=== PATIENT | female | born 1990 | race Caucasian/White ===

== ENCOUNTER → 2021-07-26 13:46 | Outpatient (CLI) | payer OTHER, SELFPAY | PROVIDERS: Visit Provider Nurse Practitioner | DX: U07.1 COVID-19 (principal) | CPT/HCPCS: C9803; U0003; U0005 ==

== ENCOUNTER 2024-05-10 08:02 | Outpatient (CLI) | payer BC, SELFPAY ==
[2024-05-10 08:18] LABS: Basophils # 0.1 K/mm3 (0-0.2); Basophils % 1.2 % (0.1-2.0); Eosinophils # 0.1 K/mm3 (0.0-0.4); Eosinophils % 2.4 % (0.1-12.0); Hematocrit 34.3 % (37.0-47.0); Hemoglobin 10.9 g/dL (12.2-16.2); Lymphocytes # 1.7 K/mm3 (0.7-4.5); Mean Corpuscular HGB Conc 31.7 g/dL (31.8-35.4); Mean Corpuscular Hemoglobin 22.6 pg (27.0-31.2); Mean Corpuscular Volume 71.2 fl (81-99); Mean Platelet Volume 8.5 fl (7.4-10.4); Monocytes # 0.3 K/mm3 (0.1-1.0); Monocytes % 6.2 % (1.7-9.3); Neutrophils % 57.2 % (37.0-80.0); Platelet Count 272 K/mm3 (142-424); Red Blood Count 4.82 M/mm3 (4.20-5.40); Red Cell Distribution Width 16.4 % (11.5-17.5); White Blood Count 5.2 K/mm3 (4.8-10.8)
[2024-05-10 08:39] LABS: Albumin Level 4.2 g/dl (3.5-5.0); Chloride 108 mmol/L (98-107); Potassium 4.1 mmoL/L (3.5-5.1); Sodium 138 mmol/L (136-145)
[2024-05-10 08:41] LABS: Blood Urea Nitrogen 10 mg/dl (7-17); Estimated Glomerular Filt Rate 114 ml/min (>60); GFR (African American) 138 ML/MIN (>60)
[2024-05-10 08:42] LABS: Alanine Aminotransferase 33 U/L (12-78); Albumin/Globulin Ratio 1.9 (1.1-1.8); Alkaline Phosphatase 71 U/L (38-126); Aspartate Amino Transferase 31 U/L (14-36); Bilirubin,Total 0.5 mg/dl (0.2-1.3); Calcium 8.8 mg/dl (8.4-10.2); Chol/HDL Ratio 3.1 (1-3.5); Cholesterol 156 mg/dl (140-200); Globulin 2.2 g/dL (1.3-3.2); Glucose 114 mg/dl (74-100); HDL Cholesterol 51 mg/dl (40-60); Total Protein,Serum 6.4 g/dl (6.3-8.2); Triglycerides 89 mg/dl (30-150); VLDL Cholesterol 18 mg/dL (0-40)
[2024-05-10 08:47] LABS: Anion Gap 8.1 mEq/L (5-15); Carbon Dioxide 26 mmol/L (22.0-30.0)
[2024-05-10 08:53] LABS: Direct LDL Cholesterol 85.95 mg/dL (100-129)
[2024-05-10 09:13] LABS: Thyroid Stimulating Hormone 1.05 uIU/mL (0.465-4.68)
[2024-05-11 08:22] LABS: FSH 7.2 mIU/mL (.); LH 11.7 mIU/mL (.)
== END 2024-05-10 23:59 | disposition home or self-care (01) ==
PROVIDERS: PCP Nurse Practitioner Family; Visit Provider Nurse Practitioner Family
DX: R23.2 Flushing (principal); R53.83 Other fatigue; Z00.00 Encounter for general adult medical examination without abnormal findings
CPT/HCPCS: 36415; 80050; 80053; 80061; 82670; 83001; 83002; 84443; 85025

== ENCOUNTER 2024-05-19 15:15 | Outpatient (CLI) | payer BC, SELFPAY ==
--- NOTE | 2024-05-19 15:19 | US_ITS ---
FINAL REPORT CLINICAL HISTORY: ENLARGED THYROID COMPARISON: None FINDINGS: Sonographic images of the thyroid gland were obtained. The right thyroid lobe measures 49 mm. in length. The left thyroid lobe measures 55 mm. in length. The thyroid isthmus measures 3 mm. The echogenicity is normal. Right 17 x 12 x 11 mm solid isoechoic TR 3 nodule. Left solid hypoechoic 11 x 9 x 8 mm TR 4 nodule IMPRESSION: Thyroid nodules as above. Recommend follow-up ultrasound in 6 to 12 months per TI-RADS criteria. Reviewed, Interpreted and Dictated by Kris Peralta III, MD Transcribed by Tanja Zamora Authenticated and [facility]
== END 2024-05-19 23:59 | disposition home or self-care (01) ==
LOC: RAD 15:16
PROVIDERS: PCP Nurse Practitioner Family; Visit Provider Nurse Practitioner Family
DX: E04.9 Nontoxic goiter, unspecified (principal)
CPT/HCPCS: 76536

== ENCOUNTER 2024-06-27 08:21 | Emergency (ER) | payer BC, SELFPAY ==
[2024-06-27 09:16] VITALS: BP 132/85; PULSE 96; RESP 20; TEMP 36.6; O2SAT 97; BMI 52.4
[2024-06-27 09:19] VITALS: BP 107/57; PULSE 82; RESP 20; TEMP 36.8; O2SAT 98; BMI 31.6
--- NOTE | 2024-06-27 09:22 | EXP.UTC ---
Discharge Plan Disposition Patient Disposition: Home, Self-Care Condition: Good Prescriptions Prescriptions: New amoxicillin 875 mg tablet 875 mg PO Q12H Qty: 20 0RF luwuljkmrvzmeep-cmtuufdrz-CM [Bromfed DM] 2-30-10 mg/5 mL Syrup 5 ml PO Q6H PRN (Reason: Cough) Qty: 240 0RF Referrals Follow up/Referrals: Carmen Mckeon APRN [Primary Care Provider] - See instructions Activity Restrictions/Add. Instructions Additional Instructions/Restrictions: Drink plenty of fluids. Take tylenol or ibuprofen for pain or fever. Take the medications as directed. Follow up with your regular doctor. GO TO THE ER FOR ANY WORSENING SYMPTOMS Throw your tooth brush away and get a new one. Clinical Impressions Clinical Impression: Strep throat Instructions Patient Instructions: DI for Strep Throat, Strep Throat Print Language Print Language: Occitan Discharge ED Provider: Arnaldo Moraes [facility] [place] HPI General Stated complaint: sore throat Mode of Arrival: Ambulatory Source of Information: Patient Time Seen by Provider: 06/27/24 09:22 Description of Symptoms (Recalled from Triage Doc. by RN): SORE THROAT HEENT Symptoms (Recalled from RN notes): Yes Resp Symptoms (Recalled from RN notes): No Skin Symptoms (Recalled from RN notes): No MS Symptoms (Recalled from RN notes): No Functional Status (Recalled from RN notes): WNL Related Data Previous Rx's ?Medication ?Instructions ?Recorded amoxicillin 875 mg tablet 875 mg PO Q12H #20 tabs 06/27/24 jigbbhfuhwqgklx-emhvtmrpfahygoo-FC 5 ml PO Q6H PRN Cough #240 mL 06/27/24 2 mg-30 mg-10 mg/5 mL oral syrup (Bromfed DM) Worker's Comp Is this a Worker's Comp case?: No [facility] Disclaimer: The information contained in this section may have been updated after the patient was seen, as this information can be updated by other users. Social History Smoking Status: Never smoker alcohol intake: never current occupational status: employed Travel in the last 8 weeks: None ROS Obtained: Yes All systems reviewed & no additional complaints except as documented Constitutional Constitutional: Reports chills and Reports fever(s) Eyes Eyes: Denies eye discharge ENT Ears, Nose, Mouth, and Throat: Reports as per HPI Cardiovascular Cardiovascular: Denies chest pain Respiratory Respiratory: Denies chest congestion and Reports cough Gastrointestinal Gastrointestingal: Reports nausea; Denies abdominal pain, constipation, cramping, diarrhea or vomiting Musculoskeletal Musculoskeletal: Denies arthralgias Integumentary/Breasts Skin/Breast: Denies rash Neurologic Neurologic: Denies paresthesias Physical Exam General General appearance: alert and in no apparent distress Head Head exam: atraumatic, normocephalic and normal inspection Eye Eye exam: Present normal appearance, PERRL and EOMI ENT ENT exam: Present mucous membranes moist and normal external ear exam Expanded ENT Exam TM/Canal exam: Bilateral TM: erythema and bulging Nose exam: Absent sinus tenderness Mouth exam: Present normal external inspection; Absent drooling Teeth exam: Present normal inspection Throat exam: Present tonsillar erythema, tonsillomegaly and tonsillar exudate Neck Neck exam: Present normal inspection, full ROM and trachea midline; Absent tenderness, meningismus or lymphadenopathy Chest Chest inspection: Present normal inspection and symmetric chest wall rise; Absent tenderness Respiratory Respiratory exam: Present normal lung sounds bilaterally; Absent respiratory distress, wheezes, stridor or accessory muscle use Cardiovascular Cardiovascular exam: Present regular rate and normal rhythm; Absent systolic murmur or diastolic murmur Abdominal Exam Abdominal exam: Present soft and normal bowel sounds; Absent distention, tenderness, guarding, rebound or rigidity Extremities Exam Extremities exam: Present normal inspection and normal capillary refill; Absent calf tenderness Back Exam Back exam: Present normal inspection and full ROM; Absent tenderness, CVA tenderness (R) or CVA tenderness (L) Neurological Exam Neurological exam: Present alert, oriented X3 and CN II-XII intact Psychiatric Psychiatric exam: Present normal affect and normal mood Skin Skin exam: Present warm, dry, intact and normal color Medical Decision Making Medical Records Screening: Per USPSTF and CDC recommendations, given the prevalence of disease in our region, it is our hospital?s policy to screen for HIV and viral Hepatitis for all patients aged 18 and over and those with ongoing risk factors. Tung Inquiry Pt receiving controlled substance: No Vital Signs: 06/27/24 09:16 06/27/24 09:19 Temperature 97.9 F 98.2 F Temperature Source Oral Oral Pulse Rate [Left Radial] 96 H 82 Respiratory Rate 20 20 Blood Pressure [Left Arm] 132/85 107/57 L Blood Pressure Mean [Left Arm] 100 73 02 Sat by Pulse Oximetry 97 98
[2024-06-27 09:25] LABS: UTC Strep Screen (Rapid) Positive (Negative)
[2024-06-27 09:36] VITALS: BP 107/57; PULSE 82; RESP 20; TEMP 36.8
== END 2024-06-27 09:41 | disposition home or self-care (01) ==
PROVIDERS: Emergency Provider Nurse Practitioner Family; PCP Nurse Practitioner Family
DX: J02.0 Streptococcal pharyngitis (principal); R50.9 Fever, unspecified; J02.9 Acute pharyngitis, unspecified
CPT/HCPCS: 87880; 99212; G0381

== ENCOUNTER 2024-07-04 07:59 | Emergency (ER) | payer BC, SELFPAY ==
[2024-07-04] VITALS (7 sets, daily range): BP systolic 106–166; BP diastolic 56–92; PULSE 87–110; RESP 20–24; TEMP 36.7–36.8; O2SAT 88–99; BMI 31.1
--- NOTE | 2024-07-04 08:16 | ED_ITS ---
Discharge Plan Disposition Patient Disposition: Home, Self-Care Prescriptions Prescriptions: New prednisone 20 mg tablet 40 mg PO DAILY 5 Days Qty: 10 0RF amoxicillin-pot clavulanate 875-125 mg tablet 1 tab PO BID 5 Days Qty: 10 0RF azithromycin 500 mg tablet 500 mg PO DAILY 2 Days Qty: 2 0RF Rx Instructions: start on day 2 of therapy No Action amoxicillin 875 mg tablet 875 mg PO Q12H Qty: 20 0RF rbszihfdnpwtanl-duonuwbdc-GJ [Bromfed DM] 2-30-10 mg/5 mL Syrup 5 ml PO Q6H PRN (Reason: Cough) Qty: 240 0RF Referrals Follow up/Referrals: Carmen Mckeon APRN [Primary Care Provider] - See instructions Activity Restrictions/Add. Instructions Additional Instructions/Restrictions: Discontinue taking amoxicillin, start taking Augmentin. 5-day course. Take azithromycin and prednisone in the mornings. Azithromycin for 2 more days, prednisone for 5. Be sure to drink plenty of fluids while taking prednisone as a cause GI and kidney dysfunction if not. Call your family doctor to establish care for this visit to the emergency department and schedule follow-up within 48 hours to ensure improvement. If you have any worsening of your condition or any other concerning signs or symptoms, return to the emergency department or your primary care doctor for further evaluation. Clinical Impressions Clinical Impression: Atypical pneumonia Stand Alone Forms Stand Alone Forms: Work/School Release Instructions Patient Instructions: DI for Pneumonia -- Adult, DI for Atypical Pneumonia Print Language Print Language: Irish Discharge ED Provider[place] [facility] [place] General Chief complaint: Shortness of Breath/Dyspnea Stated complaint: congestion,cough Mode of Arrival: Ambulatory Source of Information: Patient Limitations: No Limitations Time Seen by Provider: 07/04/24 08:17 Description of Symptoms (Recalled from Triage Doc. by RN): PATIENT C/O SOA, MUSCLE PAIN, AND COUGH X 4 DAYS HEENT Symptoms (Recalled from RN notes): No Resp Symptoms (Recalled from RN notes): Yes Skin Symptoms (Recalled from RN notes): No MS Symptoms (Recalled from RN notes): No Functional Status (Recalled from RN notes): WNL History of Present Illness Provider Complaint: Patient states that she had strep throat a week ago and is on Amoxil States that a few days ago she started with cough, SOA, chest congestion, but only coughing up small amounts of mucous States 2 nights ago she felt like she may have had a fever but not sure but today she states that her chest is sore from all the coughing and still feels like she cannot get a good breath Related Data Previous Rx's ?Medication ?Instructions ?Recorded amoxicillin 875 mg tablet 875 mg PO Q12H #20 tabs 06/27/24 nxsteuyxufhrwne-culaifwxclrfcpz-KH 5 ml PO Q6H PRN Cough #240 mL 06/27/24 2 mg-30 mg-10 mg/5 mL oral syrup (Bromfed DM) amoxicillin 875 mg-potassium 1 tab PO BID 5 days #10 tabs 07/04/24 clavulanate 125 mg tablet azithromycin 500 mg tablet 500 mg PO DAILY 2 days #2 tabs 07/04/24 prednisone 20 mg tablet 40 mg (2 x 20 mg) PO DAILY 5 days 07/04/24 #10 tabs Allergies Allergy/AdvReac Type Severity Reaction Status Date / Time No Known Allergies Allergy Verified 07/04/24 08:15 Worker's Comp Is this a Worker's Comp case?: No [facility] Disclaimer: The information contained in this section may have been updated after the patient was seen, as this information can be updated by other users. Medical History (Updated 07/04/24 @ 10:25 by Alton Montemayor MD) Asthma Surgical History (Updated 07/04/24 @ 08:15 by Imani Plummer RN) History of tubal ligation History of tonsillectomy History of section Social History (Updated 06/27/24 @ 09:32 by Arnaldo Moraes APRN) Smoking Status: Former smoker alcohol intake: never current occupational status: employed Travel in the last 8 weeks: None Have you lived/traveled outside [place] in past 30 days?: No Contact w/someone who lives/traveled outside [place] past 30 days?: No Exposure to someone with infectious disease in past 14 days?: No Do you have a fever (greater than 100.4 F or 38 C)?: No Have you tested positive for COVID-19: No Exposed to someone with COVID-19 in past 14 days?: No Do you have a sore throat?: No Do you have a cough?: Yes Do you have any weakness?: No Do you have any diarrhea?: No Are you experiencing any unusual bleeding?: No Do you have any muscle aches/pain?: No Do you have any abdominal pain?: No Are you experiencing loss of taste or smell?: No ROS Obtained: Yes All systems reviewed & no additional complaints except as documented and Yes Systems reviewed as appropriate & no additional complaints except as documented Constitutional Constitutional: Reports system reviewed and no additional complaints, except as documented, Reports as per HPI and Reports fever(s) (a couple days ago) ENT Ears, Nose, Mouth, and Throat: Reports system reviewed and no additional complaints, except as documented and Reports as per HPI Cardiovascular Cardiovascular: Reports system reviewed and no additional complaints, except as documented and Reports as per HPI Respiratory Respiratory: Reports system reviewed and no additional complaints, except as documented, Reports as per HPI, Reports shortness of breath, Reports chest congestion, Reports cough, Reports pain on inspiration, Reports pain with cough and Reports other (report chest muscles and back sore from coughing so much) Gastrointestinal Gastrointestingal: Reports system reviewed and no additional complaints, except as documented and as per HPI Musculoskeletal Musculoskeletal: Reports system reviewed and no additional complaints, except as documented and Reports as per HPI Physical Exam General General appearance: alert and in no apparent distress ENT ENT exam: Present mucous membranes moist Respiratory Respiratory exam: Present wheezes; Absent respiratory distress Cardiovascular Cardiovascular exam: Present regular rate, normal rhythm and normal heart sounds Neurological Exam Neurological exam: Present alert and oriented X3 Medical Decision Making Medical Records Screening: Per USPSTF and CDC recommendations, given the prevalence of disease in our region, it is our hospital?s policy to screen for HIV and viral Hepatitis for all patients aged 18 and over and those with ongoing risk factors. Tung Inquiry Pt receiving controlled substance: No Tung was queried for this patient: No Vital Signs: 07/04/24 08:05 Temperature 98.2 F Temperature Source Oral Pulse Rate [Left Brachial] 105 H Respiratory Rate 24 Blood Pressure [Left Arm] 128/73 Blood Pressure Mean [Left Arm] 91 Blood Pressure Source [Left Arm] Automatic Cuff Blood Pressure Position [Left Arm] Sitting 02 Sat by Pulse Oximetry 91 L Oxygen Delivery Method Room Air Lab Data 07/04/24 08:50 07/04/24 08:50 Medical Decision Narrative: Patient states has been having SOA, soreness in chest and lungs from coughing Patients SPO2 on room air was 91% but she started talking and SPO2 dropped to 88% discussed with patient and will transfer to the ED for further work up and evaluation and she agreed patient was moved to room 9
--- NOTE | 2024-07-04 08:25 | PC.NURSE ---
Dr. Montemayor at bedside
--- NOTE | 2024-07-04 08:30 | XR_ITS ---
FINAL REPORT CLINICAL HISTORY: hypoxemia, productive cough COMPARISON: None FINDINGS: 2 views of the chest were obtained. There are patchy opacities in the right lung base suspicious for bronchopneumonia. The left lung is clear. There is no evidence of effusion or other pleural disease. The mediastinum has a normal appearance. The cardiac silhouette is unremarkable. IMPRESSION: Right basilar pneumonia. Reviewed, Interpreted and Dictated by Vadim Danielle MD Transcribed by Rut Sims Authenticated and [facility]
--- NOTE | 2024-07-04 08:34 | PC.NURSE ---
covid/flu swab sent to lab
--- NOTE | 2024-07-04 08:34 | HMH.EDCP ---
Discharge Plan Disposition Patient Disposition: Home, Self-Care Prescriptions Prescriptions: New prednisone 20 mg tablet 40 mg PO DAILY 5 Days Qty: 10 0RF amoxicillin-pot clavulanate 875-125 mg tablet 1 tab PO BID 5 Days Qty: 10 0RF azithromycin 500 mg tablet 500 mg PO DAILY 2 Days Qty: 2 0RF Rx Instructions: start on day 2 of therapy No Action amoxicillin 875 mg tablet 875 mg PO Q12H Qty: 20 0RF ewrvreruukiwoqw-zliszjzdl-VQ [Bromfed DM] 2-30-10 mg/5 mL Syrup 5 ml PO Q6H PRN (Reason: Cough) Qty: 240 0RF Referrals Follow up/Referrals: Carmen Mckeon APRN [Primary Care Provider] - See instructions Activity Restrictions/Add. Instructions Additional Instructions/Restrictions: Discontinue taking amoxicillin, start taking Augmentin. 5-day course. Take azithromycin and prednisone in the mornings. Azithromycin for 2 more days, prednisone for 5. Be sure to drink plenty of fluids while taking prednisone as a cause GI and kidney dysfunction if not. Call your family doctor to establish care for this visit to the emergency department and schedule follow-up within 48 hours to ensure improvement. If you have any worsening of your condition or any other concerning signs or symptoms, return to the emergency department or your primary care doctor for further evaluation. Clinical Impressions Clinical Impression: Atypical pneumonia Stand Alone Forms Stand Alone Forms: Work/School Release Instructions Patient Instructions: DI for Pneumonia -- Adult, DI for Atypical Pneumonia Print Language Print Language: Amharic Discharge ED Provider: Alton Montemayor HPI General Chief Complaint: Shortness of Breath/Dyspnea Stated Complaint: congestion,cough Time Seen by Provider: 07/04/24 08:17 Mode of Arrival: Family Vehicle Source of Information: Patient and Medical Record Limitations: No Limitations Description of Symptoms (Recalled from ER Triage Doc. by RN): Pt c/o productive cough, sinus & chest congestion, SOA with exertion. She was originally seen at [facility] but her o2 sat was 88-91%. Pt states last week she was dx with strep and started on amoxicillin, she still have few doses left. History of Present Illness HPI narrative: Please note that above description of symptoms, in this electronic medical record under categorization of recalled from ER triage doctor by RN are reflective of an initial nursing assessment, however, is not reflective of my full history and physical exam that was personally taken and clarified. Consequentially, this preceding description of symptoms, which may include the patient's categorized chief complaint in the EMR, do not reflect my personal clinical impression, and the ultimate description of history of present illness and patient stated complaints should be deferred to this section of the note. Unless stated otherwise or congruent with this section of the note, additional signs, symptoms, or incongruence should be interpreted as inaccurate with my clinical impression. Related Data Previous Rx's ?Medication ?Instructions ?Recorded amoxicillin 875 mg tablet 875 mg PO Q12H #20 tabs 06/27/24 aqiarwaegsnhtfi-eogafolhjamnvvx-VY 5 ml PO Q6H PRN Cough #240 mL 06/27/24 2 mg-30 mg-10 mg/5 mL oral syrup (Bromfed DM) amoxicillin 875 mg-potassium 1 tab PO BID 5 days #10 tabs 07/04/24 clavulanate 125 mg tablet azithromycin 500 mg tablet 500 mg PO DAILY 2 days #2 tabs 07/04/24 prednisone 20 mg tablet 40 mg (2 x 20 mg) PO DAILY 5 days 07/04/24 #10 tabs Allergies Allergy/AdvReac Type Severity Reaction Status Date / Time No Known Allergies Allergy Verified 07/04/24 08:15 [facility] Disclaimer: The information contained in this section may have been updated after the patient was seen, as this information can be updated by other users. Medical History (Updated 07/04/24 @ 10:25 by Alton Montemayor MD) Asthma Surgical History (Updated 07/04/24 @ 08:15 by Imani Plummer RN) History of tubal ligation History of tonsillectomy History of section Social History (Updated 06/27/24 @ 09:32 by Arnaldo Moraes APRN) Smoking Status: Former smoker alcohol intake: never current occupational status: employed Travel in the last 8 weeks: None Have you lived/traveled outside [place] in past 30 days?: No Contact w/someone who lives/traveled outside US past 30 days?: No Exposure to someone with infectious disease in past 14 days?: No Do you have a fever (greater than 100.4 F or 38 C)?: No Have you tested positive for COVID-19: No Exposed to someone with COVID-19 in past 14 days?: No Do you have a sore throat?: No Do you have a cough?: Yes Do you have any weakness?: No Do you have any diarrhea?: No Are you experiencing any unusual bleeding?: No Do you have any muscle aches/pain?: No Do you have any abdominal pain?: No Are you experiencing loss of taste or smell?: No ROS Obtained: Yes All systems reviewed & no additional complaints except as documented Physical Exam General General appearance: alert and in no apparent distress Neck Neck exam: Present trachea midline Chest Chest inspection: Present normal inspection and symmetric chest wall rise Respiratory Respiratory exam: Present wheezes (Wheezes right upper lobe posteriorly and left lower lobe laterally.); Absent respiratory distress, stridor, accessory muscle use or prolonged expiratory phase Cardiovascular Cardiovascular exam: Present normal rhythm, tachycardia and other (Pulses equal and symmetric in upper and lower extremities) Extremities Exam Extremities exam: Absent edema Neurological Exam Neurological exam: Present alert, oriented X3 and CN II-XII intact Skin Skin exam: Present warm, dry and pallor; Absent cyanosis or diaphoresis HEART Score HEART Score HEART Score assessment performed?: No Procedures Limited Ultrasound Indication:: Limited cardiac ultrasound Indication: Shortness of breath, productive cough Identified cardiac views: -Cardiac parasternal long axis -Cardiac parasternal short axis Findings: -Cardiac activity present -Gross wall motion normal -Pericardial effusion absent -Right heart strain absent Impression: -Normal cardiac ultrasound without evidence of right heart strain, effusion, or other abnormalities. No evidence of regurgitation Images were saved to permanent archive The study was technically adequate CPT: 62064 This study was performed by me, and I personally interpreted all images/videos. Based on my clinical judgement, these images were adequate and did not necessitate further imaging Critical Care Critical Care Time Critical Care Time: Yes (respiratory) Attestation: On 07/04/24, the high probability of a clinically significant, sudden or life threatening deterioration of the following system(s) required my full and direct attention, intervention and personal management. The time I documented below is in addition to time spent performing reported procedures but includes the following listed in this critical care notation. Total Time Total Critical Care Time: 35 Medical Decision Making Medical Records Medical records reviewed: Yes I reviewed the patient's medical records. Tung Inquiry Pt receiving controlled substance: No Tung was queried for this patient: No Vital Signs Vital Signs: 07/04/24 08:05 07/04/24 08:25 07/04/24 08:51 Temperature 98.2 F 98.0 F Temperature Source Oral Oral Pulse Rate 99 H Pulse Rate [Left Brachial] 105 H 107 H Respiratory Rate 24 21 Blood Pressure 125/80 Blood Pressure [Left Arm] 128/73 166/92 H Blood Pressure Mean 95 Blood Pressure Mean [Left Arm] 91 116 Blood Pressure Source Blood Pressure Source [Left Arm] Automatic Cuff Automatic Cuff Blood Pressure Position [Left Arm] Sitting 02 Sat by Pulse Oximetry 91 L 88 L 96 Oxygen Delivery Method Room Air Room Air Nasal Cannula Oxygen Flow Rate (LPM) 2 07/04/24 09:00 07/04/24 09:31 07/04/24 10:29 Temperature 98.2 F Temperature Source Oral Pulse Rate 101 H 110 H 87 Pulse Rate [Left Brachial] Respiratory Rate 20 Blood Pressure 126/79 106/56 L 124/75 Blood Pressure [Left Arm] Blood Pressure Mean 89 72 Blood Pressure Mean [Left Arm] Blood Pressure Source Automatic Cuff Blood Pressure Source [Left Arm] Blood Pressure Position [Left Arm] 02 Sat by Pulse Oximetry 99 96 Oxygen Delivery Method Nasal Cannula Room Air Room Air Oxygen Flow Rate (LPM) 2 Lab Data Labs: Lab Results 07/04/24 08:34: SARS-CoV-2 (PCR) Not detected, Influenza A Untype (PCR) Not detected, Influenza Type B (PCR) Not detected 07/04/24 08:50: WBC 5.7, RBC 4.87, Hgb 10.7 L, Hct 34.5 L, MCV 70.8 L, MCH 22.0 L, MCHC 31.0 L, RDW 17.5, Plt Count 266, MPV 11.5 H, Neut % (Auto) 64.4, Lymph % (Auto) 21.2, [place] % (Auto) 10.6 H, Eos % (Auto) 3.0, Baso % (Auto) 0.4, Neut # (Auto) 3.6, Lymph # (Auto) 1.2, [place] # (Auto) 0.6, Eos # (Auto) 0.2, Baso # (Auto) 0.0, PT 10.9, INR 0.97, APTT 38.7 H, D-Dimer 0.88 H, Sodium 136, Potassium 3.8, Chloride 107, Carbon Dioxide 26, Anion Gap 6.8, BUN 9, Creatinine 0.60, Estimated Creat Clear 179, Estimated GFR 113, Est GFR ( Amer) 137, Glucose 102 H, Lactate 0.9, Calcium 8.6, Total Bilirubin 0.4, AST 25, ALT 22, Alkaline Phosphatase 87, Total Protein 6.8, Albumin 4.0, Globulin 2.8, Albumin/Globulin Ratio 1.4, HIV Ag/Ab Combo Qual Negative 07/04/24 08:55: VBG pH 7.39, VBG pCO2 41.1, VBG pO2 52.2 H, VBG HCO3 24.2, VBG Total CO2 25.4, VBG O2 Saturation 85.4 H, VBG Base Excess -0.9, VBG Lactic Acid 1.2 07/04/24 08:50 07/04/24 08:50 Response Orders (Tests/Meds): ED MEDICATIONS Generic Name Dose Route Start Last Admin Trade Name Freq PRN Reason Stop Dose Admin Sodium Chloride 1,780 mls @ 890 mls/hr 07/04/24 08:41 07/04/24 09:04 Sod Chlor 0.9% 1000ml Bag 30 ml/kg infuse over 2 hr (1780 ml) 07/04/24 10:40 890 mls/hr IV Administration .Q2H ONE Discontinued Medications Generic Name Dose Route Start Last Admin Trade Name Freq PRN Reason Stop Dose Admin Albuterol/Ipratropium 9 ml 07/04/24 08:30 07/04/24 09:05 Ipratropium/Albuterol 3 Ml Neb IH 07/04/24 08:31 9 ml ONCE ONE Administration Dexamethasone Sodium Phosphate 10 mg 07/04/24 09:46 07/04/24 09:55 Dexamethasone 4mg/Ml 1ml Vial IV 07/04/24 09:47 10 mg ONCE ONE Administration Azithromycin 500 mg/ Sodium 250 mls @ 250 mls/hr 07/04/24 08:41 07/04/24 09:04 Chloride IV 07/04/24 08:42 250 mls/hr ONCE ONE Administration ORDERS Category Date Time Status CXR 2 view (NOT portable) [XR chest 2V] Stat Exams 07/04/24 08:30 Completed POCUS Point of Care (ER Only) Stat Exams 07/04/24 09:46 Completed Complete Blood Count Auto Diff Stat Lab 07/04/24 08:50 Completed Comprehensive Metabolic Panel Stat Lab 07/04/24 08:50 Completed D-Dimer Stat Lab 07/04/24 08:50 Completed HIV Combo Stat Lab 07/04/24 08:50 Completed Hep C Ab with Reflex to RNA Stat Lab 07/04/24 08:50 Received Lactic Acid Stat Lab 07/04/24 08:50 Completed PT INR [Prothrombin Time INR] Stat Lab 07/04/24 08:50 Completed PTT [Activated Partial Thrombo Time] Stat Lab 07/04/24 08:50 Completed Rapid PCR Covid and Flu A/B Stat Lab 07/04/24 08:34 Completed Blood Culture Stat Micro 07/04/24 09:00 Received Venous Blood Gas Stat RT 07/04/24 08:55 Completed MDM Narrative Medical Decision Narrative: 34-year-old female otherwise healthy presenting with shortness of breath and productive cough. Patient states she has had sore throat since Sunday about a week prior to this. Was seen at the urgent care, given amoxicillin for strep pharyngitis. Patient is still taking the amoxicillin. States that a couple days prior to this she started feeling short of breath and developing productive cough. Producing thick yellow sputum now. No fevers, but she is short of breath with the same amount of exertion she normally does, no associated chest pain. No nausea, vomiting. Patient states that she just feels generally unwell. Went to the urgent care just before arrival. Patient's oxygen saturation was 88% and she was tachypneic and tachycardic, so sent to the emergency department for further evaluation. No DVT or PE risk factors. History was obtained via conversation with patient. On arrival, patient hemodynamically stable, alert, oriented x4, appropriate, GCS 15, moving all extremities spontaneously, pupils equal and reactive to light. Full physical exam performed and significant for 34-year-old female who is in no acute distress. She speaking in full sentences and jovial. 88% on room air, placed on 3 L nasal cannula. Patient's cardiac exam significant for tachycardia, otherwise normal. Lungs are wheezy in left lateral lung goldsmith inferiorly and right upper lung goldsmith posteriorly. Differential includes bronchitis, viral pneumonia, lobar versus atypical pneumonia, PE, pneumothorax, less likely to be ACS, SD, pulmonary edema, pleural effusions, among others. Patient was given supplemental oxygen, DuoNebs for symptomatic management and correction of underlying abnormalities. Patient placed on continuous cardiac monitoring and continuous pulse ox with initial blood pressure 128/73, heart rate 1 5, saturation 91% on room air. Workup independently interpreted and significant for nonactionable hematologic labs. Viral swab negative. On independent interpretation of imaging, patient has what appears to be atypical pneumonia with interstitial inflammation on two-view chest x-ray. See radiology read for full review of final results. IV fluids and azithromycin were initiated given these findings. PERC positive, dimer 0.88 and years negative. Bedside [id number] ultrasound performed and demonstrated no evidence of right heart strain. Good concentric collapse of left ventricle. No evidence of pericardial effusion, valve abnormalities, etc. CT angiogram of the chest was considered, but I feel patient's dimer with negative bedside ultrasound most consistent with radiographic pneumonia. On repeat evaluation, patient states that she is feeling much better, no longer short of breath and not feeling like she needs to cough after breathing treatment. Because of this, she was given 10 mg Decadron for bronchial inflammation. On reevaluation, patient resting comfortably. After a thorough discussion of the risks and benefits of admission versus home-going, ultimately shared decision making landed on patient deciding on home-going.. She is still tachycardic, but no longer hypoxemic. 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 The patient appears capable of making this decision. 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 I have advised the patient to immediately return if there are any further problems or if they change their mind about seeking further care. Given patient presentation, workup, history, this most likely represents hypoxemia in the setting of pneumonia. Because patient at baseline without signs or symptoms of clinical decompensation, deemed appropriate for discharge. Results were relayed to patient who voiced understanding and were agreeable to outpatient management and follow up. I discussed my clinical impression with patient and answered all questions. At this time, the evidence for any other entities in the differential is insufficient to warrant any further testing or ED observation. This was explained as well. Advisory was given that persistent or worsening symptoms require further evaluation. I confirmed the understanding of this discussion. Hydrometeorology Teacher disclaimer Much of this encounter note is an electronic sql consultant spoken language to printed text. Electronic sql consultant of the spoken language may permit errors. Although I have reviewed the note, some errors may still exist.
[2024-07-04 08:43] LABS: Coronavirus 19, PCR Not Detected (NotDetected); Influenza A, PCR Not Detected (NotDetected); Influenza B, PCR Not Detected (NotDetected)
--- NOTE | 2024-07-04 08:43 | PC.NURSE ---
Dr Montemayor notified pt meets sirs criteria for sepsis
[2024-07-04 09:02] LABS: Lactate Venous 1.2 mmol/L (0.4-2.0); VBG Base Excess -0.9 mmol/L (-2.4-2.3); VBG HCO3 24.2 mmol/L (23-30); VBG Oxygen Saturation 85.4 % (50-70); VBG PCO2 41.1 mmol/L (35-51); VBG PH 7.39 mmol/L (7.31-7.41); VBG PO2 52.2 mmol/L (28-40); VBG Total CO2 25.4 mmol/L (23-27)
[2024-07-04] MEDS: AZITHROMYCIN 500 MG in 0.9 % SODIUM CHLORIDE 250 ML 250 MG IV (09:04)
[2024-07-04] MEDS: 0.9 % SODIUM CHLORIDE 1000ML 1,780 ML 890 ML IV (09:04)
[2024-07-04] MEDS: IPRATROPIUM/ALBUTEROL 3 ML NEB 9 ML IH (09:05)
[2024-07-04 09:13] LABS: Chloride 107 mmol/L (98-107); Potassium 3.8 mmoL/L (3.5-5.1); Sodium 136 mmol/L (136-145)
[2024-07-04 09:15] LABS: Blood Urea Nitrogen 9 mg/dl (7-17); Creatinine Clearance Estimated 179 mL/min (50-200); Estimated Glomerular Filt Rate 113 ml/min (>60); GFR (African American) 137 ML/MIN (>60)
[2024-07-04 09:16] LABS: Alanine Aminotransferase 22 U/L (12-78); Albumin/Globulin Ratio 1.4 (1.1-1.8); Alkaline Phosphatase 87 U/L (38-126); Anion Gap 6.8 mEq/L (5-15); Aspartate Amino Transferase 25 U/L (14-36); Bilirubin,Total 0.4 mg/dl (0.2-1.3); Calcium 8.6 mg/dl (8.4-10.2); Carbon Dioxide 26 mmol/L (22.0-30.0); Globulin 2.8 g/dL (1.3-3.2); Glucose 102 mg/dl (74-100); Lactic Acid 0.9 mmol/L (0.7-2.1); Total Protein,Serum 6.8 g/dl (6.3-8.2)
[2024-07-04 09:19] LABS: Activated Partial Thrombo Time 38.7 seconds (22.8-30.6)
--- NOTE | 2024-07-04 09:26 | PC.NURSE ---
Called dietary for a breakfast tray
[2024-07-04 09:33] LABS: INR 0.97 (0.9-1.1); Prothrombin Time 10.9 seconds (10.1-12.5)
[2024-07-04 09:51] LABS: Hematocrit 34.5 % (37.0-47.0); Hemoglobin 10.7 g/dL (12.2-16.2); Mean Corpuscular Volume 70.8 fl (81-99); Mean Platelet Volume 11.5 fl (7.4-10.4); Platelet Count 266 K/mm3 (142-424); Red Blood Count 4.87 M/mm3 (4.20-5.40); Red Cell Distribution Width 17.5 % (11.5-17.5); White Blood Count 5.7 K/mm3 (4.8-10.8)
[2024-07-04 09:52] LABS: Basophils % 0.4 % (0.1-2.0); Eosinophils # 0.2 K/mm3 (0.0-0.4); Lymphocytes # 1.2 K/mm3 (0.7-4.5); Lymphocytes % 21.2 % (10-50); Monocytes # 0.6 K/mm3 (0.1-1.0); Monocytes % 10.6 % (1.7-9.3); Neutrophils # 3.6 K/mm3 (1.8-7.8); Neutrophils % 64.4 % (37.0-80.0)
[2024-07-04] MEDS: DEXAMETHASONE 4MG/ML 1ML VIAL 10 MG IV (09:55)
[2024-07-04 10:04] LABS: D-Dimer 0.88 ug/mL (0.0-0.5)
[2024-07-04 10:15] LABS: HIV Combo NEGATIVE (Negative)
[2024-07-05 08:14] LABS: HCV Ab Non Reactive (Non Reactive)
== END 2024-07-04 10:45 | disposition home or self-care (01) ==
LOC: UTC 08:01 → ER 08:23
PROVIDERS: Emergency Provider Emergency Medicine; PCP Nurse Practitioner Family
DX: J18.9 Pneumonia, unspecified organism (principal); R06.02 Shortness of breath; M79.10 Myalgia, unspecified site; R05.8 Other specified cough; R09.89 Other specified symptoms and signs involving the circulatory and respiratory systems; R09.81 Nasal congestion; J02.9 Acute pharyngitis, unspecified; Z87.891 Personal history of nicotine dependence
CPT/HCPCS: 71046; 80053; 82803; 83605; 85025; 85378; 85610; 85730; 86803; 87040; 87389; 87636; 96361; 96374; 96375; 99291; J0456; J1100; J7030; J7050; J7620

== ENCOUNTER 2024-09-26 06:29 | Day surgery (SDC) | payer BC, SELFPAY ==
[2024-09-25 10:11] VITALS: BMI 29.0
[2024-09-26 06:58] VITALS: BP 132/65; PULSE 83; RESP 16; TEMP 36.3; O2SAT 96
--- NOTE | 2024-09-26 06:58 | HMH.SCOPE ---
Procedure: Date: 09/26/24 Patient Date of :: 1990 Procedure Performed:: Esophagogastroduodenoscopy with biopsies Colonoscopy Indications:: Patient is a 34-year-old female referred by Carline Mckeon for colonoscopy. She has a history of anemia. Blood work on 07/04/2024 reveals a hemoglobin of 10.7. She reportedly had Hemoccult positive stool. She denies melena. Denies findings consistent with hematochezia. Given her anemia with Hemoccult positive stool plan was made to proceed with not only colonoscopy but upper endoscopy as well to evaluate possible GI source for blood loss. . Performing Provider:: Kris Shah MD Referring Provider:: Carline Mckeon . Sedation:: MAC sedation . Procedure:: Patient history was obtained and appropriate physical examination was performed. Patient's medications and allergies were reviewed. Informed consent was obtained after explaining the benefits, alternatives, and risks of the procedure including, but not limited to, bleeding, perforation, missed lesions, and adverse reaction to anesthesia medications. Patient was transported to endoscopy procedure room. Patient was connected to monitoring devices. Throughout the procedure the patient's blood pressure, pulse, and oxygen saturations were monitored continuously. Patient identification and planned procedure were verified by the staff. Patient was positioned in lateral decubitus position. Attention was first turned to upper endoscopy. Olympus endoscope was inserted via the oropharynx. Patient did require appreciable amount of propofol. Esophagus was cannulated. Overall esophagus appeared normal. Endoscope was advanced to the GE junction. GE junction was encountered at approximately 40 cm. Stomach was cannulated and insufflated. Retroflexion revealed no evidence of any appreciable hiatal hernia. There was some diffuse mild nonerosive gastropathy/gastritis. Pylorus was traversed. Duodenum appeared normal. Biopsy was obtained. Endoscope was withdrawn into the gastric lumen. Biopsy was obtained to assess for H. pylori. Stomach was desufflated and endoscope was withdrawn. Next attention was turned to colonoscopy. Patient was repositioned. Digital anorectal exam was performed. Variable stiffness Olympus colonoscope was inserted and advanced under direct visualization to the cecum. Adequacy of the colonic preparation was noted. The colonoscope was advanced a short distance into the terminal ileum. Terminal ileum appeared normal. Biopsy was obtained. The colonoscope was then slowly withdrawn while carefully examining the color, texture, anatomy, and integrity of the mucosoa circumferentially. At the rectosigmoid region there were several hyperplastic appearing polyps. Larger was removed with a cold snare. There were a couple of tiny diminutive ones which were removed with biopsy forceps. Within the rectum retroflexion was performed. There were internal nonbleeding hemorrhoid cushions. Colonoscope was then withdrawn. . Findings:: Mild gastritis Hyperplastic appearing rectosigmoid polyps Recommendations:: Overall upper endoscopy and colonoscopy. Relatively unremarkable. Follow-up colonoscopy pending pathology. If continued concern for GI blood loss etiology for anemia may need capsule endoscopy. Complications:: None immediately apparent Estimated blood obtained (mL): 2 Colonoscopy Component Colonoscopy Component Was a colonoscopy performed during today's procedure?: Yes Recommended follow up colonoscopy of at least 10 years?: No If no, follow up colonoscopy recommended in ___ years?: See above Reason for not recommending >/= 10 yr follow-up interval?: See above.
[2024-09-26 07:00] LABS: Urine Pregnancy, HCG Qual. Negative (Negative)
[2024-09-26] MEDS: LACTATED RINGERS 1000ML 1,000 ML 50 ML IV (07:05)
--- NOTE | 2024-09-26 07:13 | EXP.ANES.CKL ---
[facility] Disclaimer: The information contained in this section may have been updated after the patient was seen, as this information can be updated by other users. Medical History Psoriasis Eczema History of COVID-19 History of anemia Asthma Surgical History [place] teeth removed History of tubal ligation History of tonsillectomy History of section Family History Other Cervical cancer Social History Smoking Status: Never smoker alcohol intake: never substance use type: denies use current occupational status: employed Travel in the last 8 weeks: None caffeine: Yes [facility] Anesthesia Checklist Patient Identification Patient Identification: Arm Band, Family and Verbal (Name & ) Structural Data Admitted From: Home Planned Operative Procedure/s: EGD/Colonoscopy Consent for Planned Operative Procedure(s) Verified: Yes Verified Documents: Surgical Consent and History and Physical NPO Status Verified Time NPO: 20:00 Chart Verification Results Verified: CBC, BMP and Chest Xray Additional verifications Patient : No Anesthesia Reactions: No Cardiovascular Assessment Heart Sounds: S1 & S2 Pulse Rhythm: Irregular Peripheral Edema: No Airway Assessment Mallampati Score:: Class II C-Spine Mobility Assessed: Yes (FROM demonstrated) TMJ Mobility Assessed: No Dentition: Good Dentition Neurological Assessment Level of Consciousness: Awake, Appropriate and Follows Commands Hx Seizures: No Numbness or tingling in extremities: No Anesthesia Plan Anesthesia Risk discussed: Yes Anesthesia Plan: Verified ASA Class: II Anesthesia Type: MAC
[2024-09-26 07:23] VITALS: O2SAT 96
[2024-09-26 08:10] VITALS: BP 105/58; PULSE 80; RESP 16; TEMP 36.3; O2SAT 94
[2024-09-26 08:20] VITALS: BP 107/65; PULSE 73; RESP 16; O2SAT 96
[2024-09-26 08:30] VITALS: BP 122/68; PULSE 87; RESP 18; O2SAT 97
[2024-09-26 08:40] VITALS: BP 110/62; PULSE 78; RESP 18; O2SAT 100
== END 2024-09-26 08:43 | disposition home or self-care (01) ==
PROVIDERS: PCP Nurse Practitioner Family; Visit Provider Surgery
PROC: 0DJD8ZZ Inspection of Lower Intestinal Tract, Via Natural or Artificial Opening Endoscopic (ICD-10-PCS; CPT 43239; principal; 2024-09-26 07:30)
DX: K29.70 Gastritis, unspecified, without bleeding (principal); K63.5 Polyp of colon; K64.8 Other hemorrhoids; D64.9 Anemia, unspecified; R19.5 Other fecal abnormalities
CPT/HCPCS: 43239; 45380; 45385; 81025; J2704; J7120

== ENCOUNTER 2025-02-21 12:00 | Outpatient (CLI) | payer OTHER, BC, SELFPAY ==
--- OUTSIDE RECORDS SUMMARY | 2025-03-06 13:22 | XMS_ITS | Clinical Summary ---
Author Organization [facility] Address [address] [place] [id number] Care Team Providers Care Plant And Maintenance Technician Name Role Phone Carmen Perez JAYASHREE Primary Care Provider [phone] Allergies No known active allergies Medications albuterol [...] cervix 01/27/2020 Family history of SIDS (sudden synd naples) 01/15/2018 Mass of axillary tail of right [...] of 01/15/2018 08/20/2018 Family planning 01/31/2016 06/18/2018 Encounters Date Type Department Care Team Description 03/06/2025 Telephone [facility] OBGYN [address] [address] [place] [address] Provider, No Known 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 Patient declined 09/13/2020 [place] Depression Scale Answer Date Recorded [place] Depression Scale Total 1 09/13/2020 The thought [...] 10/27/2020 10:41 AM EDT Plan of Treatment Upcoming Encounters Date Type Department Care Team (Late st Contact Info) Description 04/06/2025 2:30 PM EDT Office Visit [facility] GYNECOLOGY [address] [place] [address] Afshan Lucrecia I, MAKE READY MECHANIC [address] [facility] [address] [place] [address] Health Maintenance Due Date Last Done Comments Annual Gynecologic Pelvic an d Breast Exam 1988 TDAP/TD VACCINES (1 - Tdap) 2007 PAP SMEAR 2009 ANNUAL PHYSICAL 12/19/2016 COVID-19 Vaccine (2023-2 5 season) 2024 INFLUENZA VACCINE 04/15/2025 HEPATITIS C SCREENING Completed 01/27/2020 , 01/29/2018 Pneumococcal Vaccine 0-49 Aged Out No longer eligible based on patient's age to complete this topic Medical Devices Implanted Type Area Fibre Cement Moulder Device Identifier Shelf Expiration Date Model / Serial / Lot Gregorio Adhs I/O Interceed Abs 3x4in - [id number] Implanted:Qty: 1 on 09/13/2020 by Ky Garcia MD at [facility] Implant [employer] J [employer] J [id number] / / Procedures Procedure Name Priority Date/Time Associated Diagnosis Comments HEPATITIS C ANTIBODY Routine 01/27/2020 12:36 PM EDT Supervision of other normal from Last 3 Months or Most Recently Relevant to Health Maintenance Results * Hepatitis C Antibody (01/27/2020 12:36 PM EDT) Hepatitis C Ab Non-Reacti ve Non-Reacti ve 01/27/2020 7:09 PM EDT [facility] Blood Venipuncture / Unknown 01/27/2020 12:36 PM EDT 01/27/2020 12:36 PM EDT Narrative [facility] - 01/27/2020 7:09 PM EDT Results may be falsely decreased if patient taking Biotin. us Ky Garcia MD LAB BLOOD ORDERABLES Final Result [facility]
[address] [place] [address], from Last 3 Months or Most Recently Relevant to Health Maintenance Insurance PPO Advance Directives * CPR (Attempt to Resuscitate) [...] pulse or is breathing): Full Care Teams Plant And Maintenance Technician Relationship Specialty Start Date End Date Carmen Perez APRN [address] [place] [address] PCP - General Nurse Practitioner 03/06/25
--- OUTSIDE RECORDS SUMMARY | 2025-03-06 13:22 | XMS_ITS | Encounter Summary ---
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 Patient declined 09/13/2020 [place] Depression Scale Answer Date Recorded [place] Depression Scale Total 1 09/13/2020 The thought [...] PM EDT Sexual Orientation Not on file documented as of this encounter Miscellaneous Notes * Telephone Encounter - Betty Maria MA - 03/06/2025 11:01 AM EDT Attempted to contact pt and there was no answer. Message was left to return call to the office. * Telephone Encounter - Mauricio Hayward RegSched Rep - 03/06/2025 9:24 AM EDT Caller: Charity Corley Relationship to patient: Self Best call back number: [phone] Chief complaint: HEAVY PERIODS WITH MORE CLOTTING. FOR THE PAST SEVERAL YEARS PERIODS ARE GETTING HEAVIER. AROUND EVERY SIX MONTHS PERIOD GETS HEAVIER AND CLOTS GET LARGER. PATIENT HAS SEEN PCP AND WAS TOLD LAB CAME BACK PATIENT IS ANEMIC. THE PAST COUPLE PERIODS PATIENT HAS NOT BEEN ABLE TO USE A TAMPON DUE TO CLOTTING AND HEAVY BLEEDING. HAS BEEN CHANGING A PAD OR MENSTRUAL DIAPER MORE THAN ONCE PER HOUR. PATIENT DECLINED ANY ABNORMAL PAIN OR CRAMPING. BLEEDING LAST SAME AROUND 5 OR 6 DAYS. OCCASIONALLY HAS SPOTTING FOR UP TO A WEEK AFTER PERIOD. Type of visit: NEW SEAM CHECKER Requested date: IF POSSIBLE FRIDAYS ARE BEST DUE TO WORK SCHEDULE. If rescheduling, when is the original appointment: [facility] SPOKE WITH OFFICE AND PATIENT WAS SCHEDULED FOR 04/06. Additional notes: [facility] WAS ASKED TO SEND TELEPHONE ENCOUNTER REQUESTING SOONER APPT. TODAY PATIENT HAS CHANGED THREE MENSTRUAL DIAPERS THIS MORNING. documented in this encounter Plan of Treatment Upcoming Encounters Date Type Department Care Team (Late st Contact Info) Description 04/06/2025 2:30 PM EDT Office Visit [facility] GYNECOLOGY [address] [facility] [address] [place] [address] Lucrecia Cavanaugh APRN [address] [facility] [address] [place] [address] documented as of this encounter Visit Diagnoses Not on filedocumented in this encounter Care Teams Senior Staff Consultant Relationship Specialty Start Date End Date Carmen Perez APRN [address] [place] [id number] PCP - General Nurse Practitioner 03/06/25 documented as of this encounter
== END 2025-02-21 23:59 | disposition home or self-care (01) ==
LOC: LAB.DROPOF 03-06 13:18
PROVIDERS: PCP Nurse Practitioner Family; Visit Provider Nurse Practitioner Family
DX: N39.0 Urinary tract infection, site not specified (principal)
CPT/HCPCS: 87086; 87088; 87186

== ENCOUNTER 2025-02-25 16:53 | Outpatient (CLI) | payer OTHER, BC, SELFPAY ==
--- NOTE | 2025-02-25 | MR_ITS ---
PROCEDURE INFORMATION: Exam: MR Right Upper Extremity Joint Without Contrast; Shoulder Exam date and time: 02/25/2025 4:53 PM Age: 34 years old Clinical indication: Pain; Shoulder; Right TECHNIQUE: Imaging protocol: Magnetic resonance imaging of the right upper extremity without contrast. Exam focused on the shoulder. COMPARISON: CR XR CHEST 2V 07/04/2024 8:25 AM FINDINGS: Bones/joints: Mild subchondral cystic changes at the greater tuberosity oblique facet. Articular cartilage normal. No joint effusion. Glenoid labrum: Unremarkable. No evidence of tear. Bursae: Minimal fluid within the subacromial bursa. Supraspinatus tendon: Unremarkable. No evidence of tear. Infraspinatus tendon: Mild tendinosis. No evidence of tear. Subscapularis tendon: Unremarkable. No evidence of tear. Teres minor tendon: Unremarkable. No evidence of tear. Tendon of biceps brachii: Unremarkable. No evidence of tear. Glenohumeral ligaments: Unremarkable. Soft tissues: Unremarkable. IMPRESSION: 1. Mild infraspinatus tendinosis. 2. Minimal fluid within the subacromial bursa, correlate for bursitis..
--- OUTSIDE RECORDS SUMMARY | 2025-02-25 16:55 | XMS_ITS | Clinical Summary ---
Author Organization [facility] Address [address] [place] [address] Care Team Providers Care Patient Care Technician Instructor Name Role Phone System, Provider Not In Primary Care Provider Un available Allergies No known active allergies Medications albuterol sulfate HFA 108 (90 Base) MCG/ACT inhaler Inhale 2 puffs Every 4 (Four) Hours As Needed for Wheezing. 1 inhaler 3 02/02/2020 Active Vit-Fe Fumarate-FA ( 27-1) 27-1 MG tablet tablet Take by mouth Daily. Active Active Problems Problem Noted Date Diagnosed Date Postoperative state 09/27/2020 39 weeks gestation of 09/13/2020 38 weeks gestation of 08/09/2020 Sterilization consult 05/04/2020 Overview (05/04/2020): Would want BTL if delivery indicated 05/04/2020 Cigarette smoker 01/27/2020 History of shoulder dystocia in prior 01/27/2020 History of conization of cervix 01/27/2020 Family history of SIDS (sudden infant synd mesa) 01/15/2018 Mass of axillary tail of right breast 01/15/2018 Mass of right axilla 02/05/2017 Resolved Problems Problem Noted Date Diagnosed Date Resolved Date Missed 06/09/2019 01/27/2020 39 weeks gestation of 08/21/2018 04/08/2019 Term 08/20/2018 08/20/2018 care following va ginal delivery ( on 08/20/2018 -- BOY) 08/20/2018 10/03/2018 Pelvic pain affecting pregna ncy in third trimester, antepartum 06/29/2018 08/20/2018 HSIL (high grade squamous in traepithelial lesion) on Pap smear of cervix 01/24/2018 9 Overview (01/24/2018): Needs colpo 37 weeks gestation of 01/15/2018 08/20/2018 Family planning 01/31/2016 06/18/2018 Family History Medical History Relation Name Comments Ovarian cancer Maternal Aunt Ovarian cancer Maternal Grandmother Ovarian cancer Mother Relation Name Status Comments Father Alive Maternal Aunt Maternal Grandmother Mother Alive Social History Tobacco Use Types Packs/Day Years Used Date Smoking Tobacco: Former Cigarettes Q uit: 02/14/2020 Smokeless Tobacco: Never Tobacco Cessation:Counseling Given: No Alcohol Use Standard Drinks/Week Comments No 0 (1 standard drink = 0.6 oz pur e alcohol) Exercise Vital Sign Answer Date Recorde d On average, how many days pe r week do you engage in moderate to strenuous exercise (like a brisk walk)? Patient declined On average, how many minutes do you engage in exercise at this level? Patient declined 09/13/2020 Hunger Vital Sign Answer Date Recorded Within the past 12 months, y ou worried that your food would run out before you got the money to buy more. Patient declined Within the past 12 months, t he food you bought just didn't last and you didn't have money to get more. Patient declined 07/2020 PRAPARE - Transportation Answer Date Re corded In the past 12 months, has l ack of transportation kept you from medical appointments or from getting medications? Patient declined 09/13/2020 In the past 12 months, has l ack of transportation kept you from meetings, work, or from getting things needed for daily living? Patient declined 09/13/2020 Farson Depression Scale Answer Date Recorded Farson Depression Scale Total 1 09/13/2020 The thought of harming myself has occurred to me . Never 09/13/2020 Abuse Screen Answer Date Recorded Unsafe at Home or Work/School Not on file Feels Threatened by Someone? Not on file 03/2023 Does Anyone Keep You from Co ntacting Others or Doint Things Outside the Home? Not on file 04/23/2023 Physical Sign of Abuse Present Not on file 1 Housing Stability Answer Date Recorded Current Living Arrangements Not on file 03/2023 Potentially Unsafe Housing Conditions Not on leonor e 04/23/2023 Family and Community Support Answer Jayden e Recorded Help with Day-to-Day Activities Not on file 04/23/2023 Lonely or Isolated Not on file 04/23/2023 Employment Answer Date Recorded Do you want help finding or keeping work or a raegan b? Not on file 04/23/2023 Disabilities Answer Date Recorded Concentrating, Remembering, or Making Decisions Difficulty Not on file 04/23/2023 Doing Errands Independently Difficulty Not on fi le 04/23/2023 Education Answer Date Recorded Help with school or training? Not on file Preferred Language Not on file 04/23/2023 Education Answer Date Recorded What is the highest level of school you have completed or the highest degree you have received? Some college, no degree 08/31/2020 Comments No Sex and Gender Information Value Date Recorded Sex Assigned at Female 04/02/2020 12:06 PM EDT Legal Sex Female 12:09 PM EDT Gender Identity Female 04/02/2020 12:06 PM EDT Sexual Orientation Not on file Last Filed Vital Signs Vital Sign Reading Time Taken Comments Blood Pressure 118/62 09/27/2020 9:56 AM EDT Pulse 79 09/15/2020 7:00 AM EST Temperature 36.9 C (98.4 F) 10/27/2020 10:41 AM EDT Respiratory Rate 18 09/15/2020 7:00 AM EST Oxygen Saturation 98% 09/13/2020 10:45 AM EST Inhaled Oxygen Concentration - - Weight 75.3 kg (166 lb) 10/27/2020 10:41 AM EDT Height 168.9 cm (5' 6.5 ) 10/27/2020 10:41 AM ED T Body Mass Index 26.39 10/27/2020 10:41 AM EDT Plan of Treatment Health Maintenance Due Date Last Done Comments Annual Gynecologic Pelvic an d Breast Exam 1988 TDAP/TD VACCINES (1 - Tdap) 2007 ANNUAL PHYSICAL 12/19/2016 COVID-19 Vaccine (2023-2 5 season) 2024 INFLUENZA VACCINE 04/15/2025 HEPATITIS C SCREENING Completed 01/27/2020 , 01/29/2018 Pneumococcal Vaccine 0-49 Aged Out No longer eligible based on patient's age to complete this topic Medical Devices Implanted Type Area Quantitative Research Analyst Device Identifier Shelf Expiration Date Model / Serial / Lot Gregorio Adhs I/O Interceed Abs 3x4in - [id number] Implanted:Qty: 1 on 09/13/2020 by Ky Garcia MD at [facility] Implant [id number] / / Procedures Procedure Name Priority Date/Time Associated Diagnosis Comments HEPATITIS C ANTIBODY Routine 01/27/2020 12:36 PM EDT Supervision of other normal from Last 3 Months or Most Recently Relevant to Health Maintenance Results * Hepatitis C Antibody (01/27/2020 12:36 PM EDT) Hepatitis C Ab Non-Reacti ve Non-Reacti ve 01/27/2020 7:09 PM EDT [facility] Blood Venipuncture / Unknown 01/27/2020 12:36 PM EDT 01/27/2020 12:36 PM EDT Narrative [facility] - 01/27/2020 7:09 PM EDT Results may be falsely decreased if patient taking Biotin. us Ky Garcia MD LAB BLOOD ORDERABLES Final Result [facility]
[address] [place] [address], from Last 3 Months or Most Recently Relevant to Health Maintenance Insurance R Advance Directives * CPR (Attempt to Resuscitate) (Latest Code Status on File) Date Activated Date Inactivated Comments 09/13/2020 1:08 PM 09/15/2020 2:33 PM Question Answer Comments Code Status (Patient has no pulse and is not breathing): CPR (Attempt to Resuscitate) Medical Interventions (Patie nt has pulse or is breathing): Full * CPR (Attempt to Resuscitate) Date Activated Date Inactivated Comments 09/13/2020 7:50 AM 09/13/2020 1:07 PM Question Answer Comments Code Status (Patient has no pulse and is not breathing): CPR (Attempt to Resuscitate) Medical Interventions (Patie nt has pulse or is breathing): Full * CPR (Attempt to Resuscitate) Date Activated Date Inactivated Comments 08/21/2018 3:31 AM 08/22/2018 5:29 PM Question Answer Comments Code Status (Patient has no pulse and is not breathing): CPR (Attempt to Resuscitate) Medical Interventions (Patie nt has pulse or is breathing): Full * CPR (Attempt to Resuscitate) Date Activated Date Inactivated Comments 08/21/2018 3:30 AM 08/21/2018 3:31 AM Question Answer Comments Code Status (Patient has no pulse and is not breathing): CPR (Attempt to Resuscitate) Medical Interventions (Patie nt has pulse or is breathing): Full * CPR (Attempt to Resuscitate) Date Activated Date Inactivated Comments 08/20/2018 9:23 PM 08/21/2018 3:30 AM Question Answer Comments Code Status (Patient has no pulse and is not breathing): CPR (Attempt to Resuscitate) Medical Interventions (Patie nt has pulse or is breathing): Full Care Teams Patient Care Technician Instructor Relationship Specialty Start Date End Date System, [place] [address] PCP - General Obstetrics and Gynecology 01/31/16
== END 2025-02-25 23:59 | disposition home or self-care (01) ==
LOC: RAD 16:53
PROVIDERS: PCP Nurse Practitioner Family; Visit Provider Nurse Practitioner Family
DX: M67.813 Other specified disorders of tendon, right shoulder (principal); S43.001A Unspecified subluxation of right shoulder joint, initial encounter; R93.6 Abnormal findings on diagnostic imaging of limbs
CPT/HCPCS: 73221

== ENCOUNTER 2025-03-06 10:00 | Outpatient (RCR) | payer OTHER, BC, SELFPAY ==
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
== END 2025-03-06 23:59 | disposition home or self-care (01) ==
LOC: OT 10:00
PROVIDERS: PCP Nurse Practitioner Family; Visit Provider Nurse Practitioner Family
DX: S13.4XXD Sprain of ligaments of cervical spine, subsequent encounter (principal); M25.511 Pain in right shoulder; V49.9XXD Car occupant (driver) (passenger) injured in unspecified traffic accident, subsequent encounter
CPT/HCPCS: 97014; 97110; 97140; 97166; G0283

== ENCOUNTER 2025-03-06 11:00 | Outpatient (RCR) | payer OTHER, BC, SELFPAY ==
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
== END 2025-03-06 23:59 | disposition home or self-care (01) ==
LOC: PT 11:00
PROVIDERS: PCP Nurse Practitioner Family; Visit Provider Nurse Practitioner Family
DX: S13.4XXD Sprain of ligaments of cervical spine, subsequent encounter (principal); M25.511 Pain in right shoulder; V49.9XXD Car occupant (driver) (passenger) injured in unspecified traffic accident, subsequent encounter
CPT/HCPCS: 97035; 97110; 97140; 97161

== ENCOUNTER 2025-03-27 10:00 | Outpatient (RCR) | payer OTHER, BC, SELFPAY ==
--- NOTE | 2025-03-27 11:23 | HMH.RHREAS ---
Rehab Reassessment Rehab OP Re-assessment Start: 03/27/25 10:01 Freq: Status: Active Protocol: Document 03/27/25 11:08 CATHERINE (Rec: 03/27/25 11:23 CATHERINE [id number]) E-signed By Miko Mace, PT Neck Disability Index Neck Disability Index Section 1: Pain The pain is very mild at moment Intensity Section 2: Personal I can look after myself normally without causing extra Care (washing, pain dressing, etc.) Section 3: Lifting Pain prevents me from lifting heavy weights, but I can manage light to Section 4: Reading I can read as much as I want to with slight pain in my neck Section 5: Headaches I have no headaches at all Section 6: I can concentrate fully when I want to with no Concentration difficulty Section 7: Work I can do most of my usual work, but no more Section 8: Driving I can drive my car as long as I want with slight pain in my neck Section 9: Sleeping I have no trouble sleeping Section 10: I am able to engage in all my recreation activities Recreation with some pain in NDI Score 9 Rehab Re-assessment Subjective Subjective Pt reports that her neck is 80% improved. Pt reports that her pain is a 2/10 this date during reassessment, but will reach a 4/10 sometimes during work. Pt reports that she is doing her full job duties at this time. Pt reports that her shoulder is her biggest limitation at this point and would prefer to focus on that with OT. Pt reports that she would like to discharge this date. Objective Objective Notes NDI: 9 (27 on IE) ROM: flexion 50, ext, 60, R LF 45, R rot 75 with no pain all planes of motion Strength: - R Rhomboid 4+/5 TTP: 0/4 Lifting assessment: able to lift 10# with minimal pain and proper mechanics. Assessment Progress Assessment Progressing as Expected Assessment Notes Pt has met all stated PT goals at this time and has made significant progress. Skilled PT is no longer indicated. 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
== END 2025-03-27 23:59 | disposition home or self-care (01) ==
LOC: PT 10:00
PROVIDERS: PCP Nurse Practitioner Family; Visit Provider Nurse Practitioner Family
DX: S13.4XXD Sprain of ligaments of cervical spine, subsequent encounter (principal); M25.511 Pain in right shoulder
CPT/HCPCS: 97110

== ENCOUNTER 2025-04-10 08:00 | Outpatient (RCR) | payer OTHER, BC, SELFPAY | END 2025-04-10 23:59 | disposition home or self-care (01) | LOC: OT 08:00 | PROVIDERS: PCP Nurse Practitioner Family; Visit Provider Nurse Practitioner Family | DX: S13.4XXD Sprain of ligaments of cervical spine, subsequent encounter (principal); M25.511 Pain in right shoulder | CPT/HCPCS: 97014; 97110; 97140; G0283 ==

== ENCOUNTER 2025-05-17 08:27 | Outpatient (CLI) | payer OTHER, SELFPAY ==
--- OUTSIDE RECORDS SUMMARY | 2025-04-06 13:30 | XMS_ITS | Encounter Summary ---
[facility] Organization [facility] Address [address] [place] [id number] Care Team Providers Care Data Base Design Analyst Name Role Phone Carmen Perez APRN Primary Care Provider [phone] Reason for Referral * Diagnostic Imaging (Routine) - Closed Specialty Diagnoses / Procedures Referred By Coco t Referred To Contact Radiology Diagnoses Menorrhagia with regular cycle Procedures US Non-ob Transvaginal Nikkie Erazo APRN [address] [facility] [address] [place] [address] Phone: tel: fax: [facility]YN [address] [facility] [address] [place] [address] Phone: tel: fax: Referral ID Status Reason Start Date Expiration Date Visits Re quested Visits Authorized [id number] Closed 04/06/2025 07/06/2026 1 1 Reason for Visit * Reason Comments Gynecologic Exam Pt reports that when she has periods they are very heavy. Encounter Details Date Type Department Care Team (Late st Contact Info) Description 04/06/2025 2:30 PM EDT Office Visit [facility]ECOLOGY [address] [facility] [address] [place] [id number] Nikkie Erazo APRN [address] [facility] [address] [place] [address] Menorrhagia with regular cycle (Primary Dx); H/O iron deficiency anemia; Cervical cancer screening; Vaginal polyp Social History Tobacco Use Types Packs/Day Years Used Date Smoking Tobacco: Former Cigarettes Q uit: 02/14/2020 Passive Smoke Exposure: Past Smokeless Tobacco: Never Tobacco Cessation:Counseling Given: No [...] needed for daily living? Patient declined 09/13/2020 [place] Depression Scale Answer Date Recorded [place] Depression Scale Total 1 09/13/2020 The thought [...] received? Some college, no degree 08/31/2020 Comments Unknown Sex and Gender Information Value Date Recorded Sex Assigned at Female 04/02/2020 12:06 PM EDT Legal Sex Female 12:09 PM EDT Gender Identity Female 04/02/2020 12:06 PM EDT Sexual Orientation Not on file documented as of this encounter Last Filed Vital Signs Vital Sign Reading Time Taken Comments Blood Pressure 104/66 04/06/2025 2:52 PM EDT Pulse - - Temperature - - Respiratory Rate - - Oxygen Saturation - - Inhaled Oxygen Concentration - - Weight 86.4 kg (190 lb 6.4 oz) 04/06/2025 2:52 P M EDT Height 168.9 cm (5' 6.5 ) 04/06/2025 2:52 PM EDT Body Mass Index 30.27 04/06/2025 2:52 PM EDT documented in this encounter Progress Notes * Nikkie Erazo I, JAYASHREE - 04/06/2025 2:30 PM EDT Subjective Chief Complaint Patient presents with Gynecologic Exam Pt reports that when she has periods they are very heavy. Charity Corley is a 34 y.o. year old presenting to be seen with complaints of trouble with her menses. She first started noticing the change in cycles ~ 4-5 years ago after her c- section and BTL. She is also anemic and is being managed with her PCP. She was on PO iron supplements, but became very constipated. She was prescribed medication to help with her constipation, but that was too expensive. She is now just taking a multivitamin. She was previously on Depo Provera, contraceptive pills, and Nexplanon. She had no issues with the pills or Nexplanon. Depo caused constant bleeding throughout the 9 months that she took it. She reports family history of several members requiring hysterectomies for AUB. No family history of blood clotting disorders. Several family members are listed in the chart as having ovarian cancer.She is not sure if it was ovarian cancer of uterine cancer. 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 She had a repeat pap smear 11/2019 - NILM/no co-testing MENSTRUAL Hx: Patient's last menstrual period was 03/30/2025 (exact date). In the past 6 months her cycles have been regular, predictable and occur monthly. Every 21 days. They typically last 4-5 days. Her menstrual flow is typically excessive. She is having to wear dependsand sometimes bleeds through those in an hour. This occurs the first 3 days. Intermenstrual bleeding is absent. Post-coital bleeding is absent. Dysmenorrhea: none and is not affecting her activities of daily living PMS: none Her cycles ARE a source of concern for her that she wishes to discuss today. SEXUAL Hx: She is currently sexually active. In the past year there there has been NO new sexual partners. Condoms are never used. She would not like to be screened for STD's at today's exam. Current control method: tubal sterilization. She is happy with her current method of contraception and does not want to discuss alternative methods of contraception. OTHER THINGS SHE WANTS TO DISCUSS TODAY: Nothing else The following portions of the patient's history were reviewed and updated as appropriate:problem list, current medications, allergies, past family history, past medical history, past social history, and past surgical history Social History Tobacco Use Smoking status: Former Packs/day: 0.00 Types: Cigarettes Quit date: 02/14/2020 Years since quittin.1 Passive exposure: Past Smokeless tobacco: Never Review of Systems Constitutional: Negative for appetite change and fatigue. Respiratory: Negative. Negative for chest tightness and shortness of breath. Cardiovascular: Negative for chest pain. Gastrointestinal: Negative. Negative for constipation and diarrhea. Genitourinary: Negative. Negative for difficulty urinating, dyspareunia, dysuria, frequency, genital sores, pelvic pain and vaginal discharge. Neurological: Negative. Negative for dizziness, syncope and headaches. Objective BP 104/66 Ht 168.9 cm (66.5 ) Wt 86.4 kg (190 lb 6.4 oz) LMP 03/30/2025 (Exact Date) No BMI 30.27 kg/m?? Physical Exam Vitals and nursing note reviewed. Exam conducted with a field adjuster present. Constitutional: Appearance: Normal appearance. She is not ill-appearing. HENT: Head: Normocephalic and atraumatic. Eyes: General: No scleral icterus. Neck: Comments: Normal thyroid Cardiovascular: Rate and Rhythm: Normal rate and regular rhythm. Heart sounds: Normal heart sounds. Pulmonary: Effort: Pulmonary effort is normal. No respiratory distress. Breath sounds: Normal breath sounds. Chest: Breasts: Breasts are symmetrical. Right: Normal. Left: Normal. Abdominal: General: There is no distension. Palpations: Abdomen is soft. There is no mass. Tenderness: There is no abdominal tenderness. There is no guarding. Hernia: No hernia is present. Genitourinary: General: Normal vulva. Exam position: Lithotomy position. Labia: Right: No rash, tenderness or lesion. Left: No rash, tenderness or lesion. Urethra: No urethral lesion. Vagina: Lesions present. No vaginal discharge, erythema, tenderness, bleeding or prolapsed vaginal casillas. Cervix: Normal. Uterus: Normal. Adnexa: Right adnexa normal and left adnexa normal. Rectum: Normal. No external hemorrhoid. Comments: Digital rectal exam deferred, appears visually normal Large vaginal polyp near introitus on right side of vagina. Appears uniform with surrounding skin, so will continue to monitor. Small identical polyp on the left Musculoskeletal: General: No swelling. Normal range of motion. Cervical back: Normal range of motion. Right lower leg: No edema. Left lower leg: No edema. Lymphadenopathy: Upper Body: Right upper body: No supraclavicular, axillary or pectoral adenopathy. Left upper body: No supraclavicular, axillary or pectoral adenopathy. Skin: General: Skin is warm and dry. Neurological: General: No focal deficit present. Mental Status: She is alert and oriented to person, place, and time. Psychiatric: Mood and Affect: Mood normal. Behavior: Behavior normal. Thought Content: Thought content normal. Judgment: Judgment normal. Lab Review CBC Imaging No data reviewed Assessment Menorrhagia w/ regular cycles H/o LAILA III H/o anemia Vaginal polyp Plan Pap and HPV were done today. If she does not receive the results of the Pap within 2 weeks time, she was instructed to call to find out the results. I explained to Charity that the recommendations for Pap smear interval in a low risk patient's has lengthened to 5 years time if both cytology and HPV testing were normal. I encouraged her to be seen yearly for a full physical exam including breastand pelvic exam even during the off years when PAP's will not be performed. Follow up will be basedon her results from today in conjunction with her history of CKC. I recommend TVUS to rule out structural causes of menorrhagia. We briefly discussed the possibilityof an endometrial biopsy if her family members did in fact have endometrial cancer diagnosed at young ages. She plans to ask her mother about this. Briefly discussed medication vs surgical managementof heavy bleeding. Repeat CBC, iron profile, and ferritin for h/o HEMANT. Continue to monitor vaginal polyps The importance of keeping all planned follow-up and taking all medications as prescribed was emphasized. Return for TVUS and clinic visit. No orders of the defined types were placed in this encounter. This note was electronically signed. Nikkie Erazo APRN April 06, 2025 documented in this encounter Plan of Treatment Upcoming Encounters Date Type Department Care Team (Late st Contact Info) Description 08/06/2025 9:30 AM EST Office Visit [facility] O[facility]YN [address] [id number] Ky Garcia MD [address] [facility] [address] [place] [address] documented as of this encounter Procedures Procedure Name Priority Date/Time Associated Diagnosis Comments LIQUID-BASED PAP SMEAR WITH HPV GENOTYPING REGARDLESS OF INTERPRETATION, [facility] ([facility]) Routine 04/06/2025 3:50 PM EDT Cervical cancer screening documented in this encounter Results * US Non-ob Transvaginal (04/28/2025 1:20 PM EDT) Anatomical Region Laterality Modality Body Radiographic Paula ging 04/28/2025 12:5 8 PM EDT Narrative 05/01/2025 9:01 AM EDT PAT NAME: CHARITY CORLEY MED REC#: [id number] DA: [id number] PAT GEND: F PAT TYPE: O EXAM JAYDEN: [id number] REF PHYS NIKKIE ERAZO Indication ======== menorrhagia Dx: Menorrhagia with regular cycle [N92.0 (ICD-10-CM)] Comparison Studies There are no relevant prior studies to which this study is being compared History ====== General History Height 167 cm Height (ft) 5 ft Height (in) 6 in Assessment LMP on 04/22/2025 Method ====== [place]on E6, Transvaginal ultrasound examination, Color Doppler flow performed, 3D ultrasound examination. View: Adequate view Uterus ====== Uterus: Normal Uterus position: Anteverted Description of uterine malformations: none Myometrium: Homogeneous Endometrium: Uniform Cervix details: Normal Uterus long 65 mm Uterus ap 52 mm Uterus tr 63 mm Uterus Vol 111.8 cm Endometrial thickness, total 4.6 mm Cervical length 32.9 mm Right Ovary ========= Rt ovary: Normal Rt ovary D1 36.2 mm Rt ovary D2 18.1 mm Rt ovary D3 20.3 mm Rt ovary Vol 7.0 cm Left Ovary ======== Lt ovary: Normal Lt ovary D1 26.0 mm Lt ovary D2 29.3 mm Lt ovary D3 18.00 mm Lt ovary Vol 7.2 cm Cul de Sac ========= Normal. No free fluid visualized Impression ========= Normal pelvic ultrasound Recommendation Follow-up as clinically indicated. Cushion Former: SAJAN Barlow Physician: Ky Garcia MD Electronically signed by: Ky Garcia MD at: 09:01 Procedure Note Ky Garcia MD - 05/01/2025 PAT NAME: CHARITY CORLEY [facility] REC#: [id number] DA: 1990 PAT GEND: F PAT TYPE: O EXAM JAYDEN: [id number] REF PHYS KACEY NIKKIE Indication ======== menorrhagia Dx: Menorrhagia with regular cycle [N92.0 (ICD-10-CM)] Comparison Studies There are no relevant prior studies to which this study is beingcompared History ====== General History Ohfxci000 cm Height (ft)5 ft Height (in)6 in Assessment LMP on 04/22/2025 Method ====== [place] E6, Transvaginal ultrasound examination, Color Doppler flowperformed, 3D ultrasound examination. View: Adequate view Uterus ====== Uterus:Normal Uterus position:Anteverted Description of uterine malformations:none Myometrium:Homogeneous Endometrium:Uniform Cervix details:Normal Uterus long65 mm Uterus ap52 mm Uterus tr63 mm Uterus Ncx328.8 cm Endometrial thickness, total4.6 mm Cervical ssuwxs56.9 mm Right Ovary ========= Rt ovary:Normal Rt ovary D136.2 mm Rt ovary D218.1 mm Rt ovary D320.3 mm Rt ovary Vol7.0 cm Left Ovary ======== Lt ovary:Normal Lt ovary D126.0 mm Lt ovary D229.3 mm Lt ovary D318.00 mm Lt ovary Vol7.2 cm Cul de Sac ========= Normal. No free fluid visualized Impression ========= Normal pelvic ultrasound Recommendation Follow-up as clinically indicated. Cushion Former: SAJAN Barlow Physician: Ky Garcia MD Electronically signed by: Ky Garcia MD at: 09:01 us Nikkie Erazo BEAN ROASTER IMG US ORDERABLES Final Res ult * (ABNORMAL) CBC (No Diff) (04/06/2025 4:17 PM EDT) WBC 6.88 3.40 - 10.80 10*3/mm3 04/06/2025 11:23 PM EDT [facility] RBC 4.81 3.77 - 5.28 10*6/mm3 04/06/2025 11:23 PM EDT [facility] Hemoglobin 12.3 12.0 - 15.9 g/dL 04/06/2025 11:23 PM EDT [facility] Hematocrit 38.8 34.0 - 46.6 % 04/06/2025 11:23 PM EDT [facility] MCV 80.7 79.0 - 97.0 fL 04/06/2025 11:23 PM EDT [facility] MCH 25.6(L) 26.6 - 33.0 pg 04/06/2025 11:23 PM EDT [facility] MCHC 31.7 31.5 - 35.7 g/dL 04/06/2025 11:23 PM EDT [facility] RDW 13.6 12.3 - 15.4 % 04/06/2025 11:23 PM EDT [facility] RDW-SD 39.6 37.0 - 54.0 fl 04/06/2025 11:23 PM EDT [facility] MPV 12.3(H) 6.0 - 12.0 fL 04/06/2025 11:23 PM EDT [facility] Platelets 302 140 - 450 10*3/mm3 04/06/2025 11:23 PM EDT [facility] Blood Venipuncture / Unknown 04/06/2025 4:17 PM EDT 04/06/2025 4:17 PM EDT us Nikkie Erazo APRN LAB BLOOD ORDERABLES Final Result [facility]
[address] [place] [address], [place] [phone] * Ferritin (04/06/2025 4:17 PM EDT) Ferritin 16.70 13.00 - 150.00 ng/mL 04/06/2025 11:28 PM EDT [facility] Blood Venipuncture / Unknown 04/06/2025 4:17 PM EDT 04/06/2025 4:17 PM EDT Narrative [facility] - 04/06/2025 11:28 PM EDT Results may be falsely decreased if patient taking Biotin. Nikkie Erazo APRN LAB BLOOD ORDERABLES Final Result Performing Organization Address City/[facility]/ZIP Co de Phone Number [facility]
[address] [place] [address], * (ABNORMAL) Iron Profile (04/06/2025 4:17 PM EDT) Iron 25(L) 37 - 145 mcg/dL 04/06/2025 11:24 PM EDT [facility] Iron Saturation (TSAT) 4(L) 20 - 50 % 04/06/2025 11:24 PM EDT [facility] Transferrin 373(H) 200 - 360 mg/dL 04/06/2025 11:24 PM EDT [facility] TIBC 556(H) 298 - 536 mcg/dL 04/06/2025 11:24 PM EDT [facility] Blood Venipuncture / Unknown 04/06/2025 4:17 PM EDT 04/06/2025 4:17 PM EDT Nikkie Erazo APRN LAB BLOOD ORDERABLES Final Result Performing Organization Address [facility]/ZIP Co de Phone Number [facility]
[address] [place] [id number], * LIQUID-BASED PAP SMEAR WITH HPV GENOTYPING REGARDLESS OF INTERPRETATION ([facility]) (04/06/2025 3:50 PM EDT) Reference Lab Report FINAL [facility]OCKSMITH APPRENTICE CYTOLOGY REPORT ---- DIAGNOSIS: Negative for intraepithelial lesion or malignancy Multiple factors can influence accuracy of Pap tests; therefore, screening at regular intervals is necessary for early cancer detection. ---- Adequacy SATISFACTORY FOR EVALUATION Transformation zone is present. Source CERVICAL/ENDOCERVI ROCKY LMP None provided CLINICAL HISTORY: Routine H/o chai deficiency anemia Encounter for screening for malignant neoplasm of cervix The pap smear is a screening test with limited sensitivity, and false negative tests results can occur. ThinPrep Pap imagined by [employer] (AI assisted system). Screened by SEJAL AGOSTO (ASCP) Aptima HPV: Negative The Aptima HPV assay is an in vitro nucleic acid amplification test for the qualitative detection of E6/E7 viral messenger RNA from 14 high risk types of HPV in cervical specimens. The high risk HPV types detected include: 16, 18, 31, 33, 35, 39, 45, 51, 52, 56, 58, 59, 66 68 Electronically signed by SHELL MACHADO, 04/08/2025 8:28 AM EDT [facility] ThinPrep Vial Cervix uteri structure / Unknown Collection / Unknown 04/06/2025 3:50 PM EDT 04/06/2025 3:50 PM EDT us Nikkie Erazo APRN PATHOLOGY/CYTOLOGY ORDERABL ES Final Result [facility]
[address] [place] [address], documented in this encounter Visit Diagnoses Diagnosis Menorrhagia with regular cycle- Primary H/O iron deficiency anemia Cervical cancer screening Screening for malignant neoplasm of the cervix Vaginal polyp Polyp of vagina documented in this encounter Care Teams Data Base Design Analyst Relationship Specialty Start Date End Date Carmen Perez APRN [address] [place] [address] PCP - General Nurse Practitioner 03/06/25 documented as of this encounter
--- OUTSIDE RECORDS SUMMARY | 2025-04-06 16:25 | XMS_ITS | Encounter Summary ---
Author Organization [facility] Address [address] [place] [address] Care Team Providers Care Development Engineer Name Role Phone Carmen Perez JAYASHREE Primary Care Provider [phone] Encounter Details Date Type Department Care Team (Late st Contact Info) Description 04/06/2025 5:25 PM EDT Lab [facility] [address] [place] [phone] H/O iron deficiency anemia Social History [...] needed for daily living? Patient declined 09/13/2020 [place] Depression Scale Answer Date Recorded [place] Depression Scale Total 1 09/13/2020 The thought [...] Description 08/06/2025 9:30 AM EST Office Visit [facility] [address] [facility] [address] [place] [address] Ky Garcia MD [address] [facility] [address] [place] [address] documented as of this encounter Procedures Procedure [...] - 10.80 10*3/mm3 04/06/2025 11:23 PM EDT [facility] RBC 4.81 3.77 - 5.28 10*6/mm3 04/06/2025 11:23 PM EDT [facility] Hemoglobin 12.3 12.0 - 15.9 g/dL 04/06/2025 11:23 PM EDT [facility] Hematocrit 38.8 34.0 - 46.6 % 04/06/2025 11:23 PM EDT [facility] MCV 80.7 79.0 - 97.0 fL 04/06/2025 11:23 PM EDT [facility] MCH 25.6(L) 26.6 - 33.0 pg 04/06/2025 11:23 PM EDT [facility] MCHC 31.7 31.5 - 35.7 g/dL 04/06/2025 11:23 PM EDT [facility] RDW 13.6 12.3 - 15.4 % 04/06/2025 11:23 PM EDT [facility] RDW-SD 39.6 37.0 - 54.0 fl 04/06/2025 11:23 PM EDT [facility] MPV 12.3(H) 6.0 - 12.0 fL 04/06/2025 11:23 PM EDT [facility] Platelets 302 140 - 450 10*3/mm3 04/06/2025 11:23 PM EDT [facility] Blood Venipuncture / Unknown 04/06/2025 4:17 PM EDT 04/06/2025 4:17 PM EDT Lucrecia Cavanaugh APRN LAB BLOOD ORDERABLES Final Result Performing Organization Address [facility]/ZIP Co de Phone Number [facility]
[address] [place] [address], * Ferritin (04/06/2025 4:17 PM EDT) Ferritin 16.70 13.00 - 150.00 ng/mL 04/06/2025 11:28 PM EDT [facility] Blood Venipuncture / Unknown 04/06/2025 4:17 PM EDT 04/06/2025 4:17 PM EDT Narrative [facility] - 04/06/2025 11:28 PM EDT Results may be falsely decreased if patient taking Biotin. Lucrecia Cavanaugh APRN LAB BLOOD ORDERABLES Final Result Performing Organization Address [facility] de Phone Number [facility]
[address] [place] [address], * (ABNORMAL) Iron Profile (04/06/2025 4:17 PM EDT) Iron 25(L) 37 - 145 mcg/dL 04/06/2025 11:24 PM EDT [facility] Iron Saturation (TSAT) 4(L) 20 - 50 % 04/06/2025 11:24 PM EDT [facility] Transferrin 373(H) 200 - 360 mg/dL 04/06/2025 11:24 PM EDT [facility] TIBC 556(H) 298 - 536 mcg/dL 04/06/2025 11:24 PM EDT [facility] Blood Venipuncture / Unknown 04/06/2025 4:17 PM EDT 04/06/2025 4:17 PM EDT us Lucrecia Cavanaugh APRN LAB BLOOD ORDERABLES Final Result [facility]
[address] [place] [address], documented in this encounter Visit Diagnoses Diagnosis H/O iron deficiency anemia documented in this encounter Care Teams Development Engineer Relationship Specialty Start Date End Date Carmen Perez APRN [address] [address] PCP - General Nurse Practitioner 03/06/25 documented as of this encounter
--- OUTSIDE RECORDS SUMMARY | 2025-04-28 12:30 | XMS_ITS | Encounter Summary ---
Author Organization [facility] Address [address] [place] [phone] Care Team Providers Care Block Mason Name Role Phone PerezCarmen quintero JAYASHREE Primary Care Provider [phone] Reason for Visit * Reason Comments Follow-up US done today. No ne w c/c. Encounter Details Date Type Department Care Team (Late st Contact Info) Description 04/28/2025 1:30 PM EDT Office Visit [facility] [address] [facility] [address] [place] [phone] Lucrecia Cavanaugh APRN [address] [facility] [address] [place] [address] Menorrhagia with regular cycle (Primary Dx); Iron deficiency; H/O thyroid nodule Social History Tobacco Use Types Packs/Day Years [...] needed for daily living? Patient declined 09/13/2020 [place] Depression Scale Answer Date Recorded [place] Depression Scale Total 1 09/13/2020 The thought [...] Sign Reading Time Taken Comments Blood Pressure 124/62 04/28/2025 1:37 PM EDT Pulse - - Temperature - - Respiratory Rate - - Oxygen Saturation - - Inhaled Oxygen Concentration - - Weight 85.7 kg (189 lb) 04/28/2025 1:37 PM EDT Height 168.9 cm (5' 6.5 ) 04/28/2025 1:37 PM EDT Body Mass Index 30.05 04/28/2025 1:37 PM EDT documented in this encounter Progress Notes * Lucrecia Cavanaugh I, REGIONAL ACCOUNT EXECUTIVE - 04/28/2025 1:30 PM EDT Subjective Chief Complaint Patient presents with Follow-up US done today. No new c/c. Charity Corley is a 34 y.o. year old . Patient's last menstrual period was 04/20/2025 (within days). She presents to be seen for follow up of menorrhagia. History of Present Illness She was last seen in March for excessive menstrual bleeding with regular cycles. She has to usea Depends and sometimes bleeds through one of those in an hour during the first 3 days of her cycle. She first noted the changes about 4-5 years ago after the of her last child. She had a TVUS today that was WNL and shows endometrial lining of 4.6 mm. She had a thyroid US last year at an OSH and reports that her thyroid was enlarged and there were nodules. She was supposed to have a follow up US, but that has not been completed yet. Several family members on her mother's side had hysterectomies for uterine fibroids. She is unsure if her mother had uterine cancer or just fibroids prior to her hysterectomy at age 35. She denies contraindications to estrogen. OTHER THINGS SHE WANTS TO DISCUSS TODAY: Nothing else The following portions of the patient's history were reviewed and updated as appropriate:problem list, current medications, allergies, past family history, past medical history, past social history, and past surgical history Social History Tobacco Use Smoking status: Former Packs/day: 0.00 Types: Cigarettes Quit date: 02/14/2020 Years since quittin.2 Passive exposure: Past Smokeless tobacco: Never Review of Systems Constitutional: Negative. Respiratory: Negative. Cardiovascular: Negative. Gastrointestinal: Negative. Endocrine: Negative. Genitourinary: Positive for menstrual problem. Negative for pelvic pain. Neurological: Negative. Objective BP 124/62 Ht 168.9 cm (66.5 ) Wt 85.7 kg (189 lb) LMP 04/20/2025 (Within Days) No BMI 30.05 kg/m?? Physical Exam Vitals and nursing note reviewed. Constitutional: Appearance: Normal appearance. She is not ill-appearing. Pulmonary: Effort: Pulmonary effort is normal. No respiratory distress. Abdominal: General: There is no distension. Genitourinary: Comments: Deferred Musculoskeletal: General: No swelling. Normal range of motion. Cervical back: Normal range of motion. Right lower leg: No edema. Left lower leg: No edema. Skin: General: Skin is warm and dry. Neurological: General: No focal deficit present. Mental Status: She is alert and oriented to person, place, and time. Psychiatric: Mood and Affect: Mood normal. Behavior: Behavior normal. Thought Content: Thought content normal. Judgment: Judgment normal. Lab Review Iron profile, CBC, Pap smear Imaging Pelvic ultrasound report Assessment Assessment & Plan Menorrhagia w/ regular cycle Iron deficiency H/o thyroid nodules Plan Reviewed TVUS report with patient. We discussed management options for HMB in depth, including hormonal and non hormonal options. She would like to try tranexamic acid cyclically. Clotting disorder work up ordered. Plan to wait for this to return before starting TXA. Will order repeat thyroid labs and patient plans to reach out to her PCP to order repeat thyroid US(I offered to order this myself). Continue iron supplementation and recheck levels in 1 month from previous lab draw. The importance of keeping all planned follow-up and taking all medications as prescribed was emphasized. F/U based on lab results and effectiveness of TXA. No orders of the defined types were placed in this encounter. This note was electronically signed. Lucrecia Cavanaugh APRN April 28, 2025 documented in this encounter Plan of Treatment Upcoming Encounters Date Type Department Care Team (Late st Contact Info) Description 08/06/2025 9:30 AM EST Office Visit [facility] [address] [place] [phone] Ky Garcia MD [address] [facility] [address] [place] [address] Scheduled Orders Name Type Priority Associated Diagnoses Orde r Schedule T4, Free Lab Routine Menorrhagia with regular cycle Expected: 04/28/2025 TSH Lab Routine Menorrhagia with regular cycle Expected: 04/28/2025 PTT+FACTOR VIII+VWF AG+VWF AC Lab Routine Menorrhagia with regular cycle Expected: 05/03/2025 (Approximate), Expires: 07/29/2026 Protime-INR Lab Routine Menorrhagia with regular cycle Expected: 05/03/2025 (Approximate), Expires: 07/29/2026 Fibrinogen Lab Routine Menorrhagia with regular cycle Expected: 05/03/2025 (Approximate), Expires: 07/29/2026 documented as of this encounter Visit Diagnoses Diagnosis Menorrhagia with regular cycle- Primary Iron deficiency Disorders of iron metabolism H/O thyroid nodule documented in this encounter Care Teams Block Mason Relationship Specialty Start Date End Date Carmen Perez APRN [address] [place] [phone] PCP - General Nurse Practitioner 03/06/25 documented as of this encounter
--- OUTSIDE RECORDS SUMMARY | 2025-05-17 08:30 | XMS_ITS | Encounter Summary ---
Author Organization [facility] Address [address] [place] [address] Care Team Providers Care Surgical Attendant Name Role Phone Carmen Perez BLEACH LIQUOR MAKER Primary Care Provider [phone] Encounter Details Date Type Department Care Team (Latest Contact Info) Description 04/28/2025 Travel Social History Tobacco Use Types Packs/Day Years [...] needed for daily living? Patient declined 09/13/2020 [place] Depression Scale Answer Date Recorded [place] Depression Scale Total 1 09/13/2020 The thought [...] Description 08/06/2025 9:30 AM EST Office Visit [facility] OBGYN [address] [address] Ky Garcia MD [address] [facility] [address] [place] [phone] documented as of this encounter Visit Diagnoses Not on filedocumented in this encounter Care Teams Surgical Attendant Relationship Specialty Start Date End Date Carmen Perez APRN [address] [address] PCP - General Nurse Practitioner 03/06/25 documented as of this encounter
--- OUTSIDE RECORDS SUMMARY | 2025-05-17 08:30 | XMS_ITS | Encounter Summary ---
Author Organization [facility] Address [address] [place] [id number] Care Team Providers Care Extractor And Wringer Operator Name Role Phone Perez, Carmen BLANC Primary Care Provider [phone] Encounter Details Date Type Department Care Team (Late st Contact Info) Description 04/06/2025 [place] [place] [facility]OLOGY 1780 [facility] [address] [place] [phone] Lucrecia Cavanaugh APRN 1780 [facility] [address] [place] [address] Social History Tobacco Use Types Packs/Day Years [...] needed for daily living? Patient declined 09/13/2020 [place] Depression Scale Answer Date Recorded [place] Depression Scale Total 1 09/13/2020 The thought [...] on file documented as of this encounter Progress Notes * Anita Bonner RegSched Rep - 04/06/2025 3:49 PM EDT A Wapi message has been sent to the patient for PATIENT ROUNDING with [facility]. documented in this encounter Plan of Treatment Upcoming Encounters Date Type Department Care Team (Late st Contact Info) Description 08/06/2025 9:30 AM EST Office Visit [facility] OBGYN [address] [address] Ky Garcia MD [address] [address] documented as of this encounter Visit Diagnoses Not on filedocumented in this encounter Care Teams Extractor And Wringer Operator Relationship Specialty Start Date End Date Carmen Perez APRN [address] [address] PCP - General Nurse Practitioner 03/06/25 documented as of this encounter
--- OUTSIDE RECORDS SUMMARY | 2025-05-17 08:30 | XMS_ITS | Encounter Summary ---
[facility] Organization [facility] Address [address] [place] [address] Care Team Providers Care Cnc Maintenance Technician Name Role Phone Naya Perezi JAYASHREE Primary Care Provider [phone] Reason for Visit * Reason Onset Date Comments SOONER JAMES GIFFORD DEPARTURE CLERK 03/06/2025 Encounter Details Date Type Department Care Team (Late st Contact Info) Description 03/06/2025 Telephone [facility] OBGYN [address] [place] [address] [address] [place] [address] Provider, [place] [address] SOONER JAMES GIFFORD Social History Tobacco Use [...] needed for daily living? Patient declined 09/13/2020 [place] Depression Scale Answer Date Recorded [place] Depression Scale Total 1 09/13/2020 The thought [...] Telephone Encounter - Betty Maria MA - 04/09/2025 9:57 AM EDT PT was seen in office on 04/06/25 with Lucrecia Cavanaugh for this issue. * Telephone Encounter - Betty Maria MA - 03/06/2025 11:01 AM EDT Attempted to contact pt and there was no answer. Message was left to return call to the office. * Telephone Encounter - Mauricio Hayward RegSched Rep - 03/06/2025 9:24 AM EDT Caller: Charity Corley Relationship to patient: Self Best call back number: [phone] Chief complaint: HEAVY PERIODS WITH MORE CLOTTING. [...] WEEK AFTER PERIOD. Type of visit: NEW DEPARTURE CLERK Requested date: IF POSSIBLE FRIDAYS ARE BEST DUE TO WORK SCHEDULE. If rescheduling, when is the original appointment: [facility] SPOKE WITH OFFICE AND PATIENT WAS SCHEDULED FOR 04/06. Additional notes: [facility] WAS ASKED TO SEND TELEPHONE ENCOUNTER REQUESTING SOONER APPT. TODAY PATIENT HAS CHANGED THREE MENSTRUAL DIAPERS THIS MORNING. documented in this encounter Plan of Treatment Upcoming Encounters Date Type Department Care Team (Late st Contact Info) Description 08/06/2025 9:30 AM EST Office Visit [facility] OBGYN [address] [place] [address] Ky Garcia MD [address] [place] [address] documented as of this encounter Visit Diagnoses Not on filedocumented in this encounter Care Teams Cnc Maintenance Technician Relationship Specialty Start Date End Date Carmen Perez APRN 2016 [facility] [address] [place] [address] PCP - General Nurse Practitioner 03/06/25 documented as of this encounter
--- OUTSIDE RECORDS SUMMARY | 2025-05-17 08:30 | XMS_ITS | Encounter Summary ---
Author Organization [facility] Address [address] [place] [address] Care Team Providers Care Shaving Machine Operator Name Role Phone Carmen Perez APRN Primary Care Provider [phone] Encounter Details Date Type Department Care Team (Late st Contact Info) Description 05/13/2025 Telephone [facility] GYNECOLOGY [address] [place] [phone] Lucrecia Cavanaugh APRN 1780 [facility] [address] [place] [address] Social History Tobacco Use Types Packs/Day Years [...] needed for daily living? Patient declined 09/13/2020 [place] Depression Scale Answer Date Recorded [place] Depression Scale Total 1 09/13/2020 The thought [...] encounter Miscellaneous Notes * Telephone Encounter - Rosa Echevarria MA - 05/13/2025 8:12 AM EDT I attempted to call the pt, I left a message for her to give the office a call back. documented in this encounter Plan of Treatment Upcoming Encounters Date Type Department Care Team (Late st Contact Info) Description 08/06/2025 9:30 AM EST Office Visit [facility] OBGYN [address] [address] Ky Garcia MD [address] [address] documented as of this encounter Visit Diagnoses Not on filedocumented in this encounter Care Teams Shaving Machine Operator Relationship Specialty Start Date End Date Carmen Perez APRN [address] [address] PCP - General Nurse Practitioner 03/06/25 documented as of this encounter
--- OUTSIDE RECORDS SUMMARY | 2025-05-17 08:30 | XMS_ITS | Encounter Summary ---
[facility] Organization [facility] Address [address] [place] [address] Care Team Providers Care Sole Molding Machine Operator Name Role Phone Carmen Perez APRN Primary Care Provider [phone] Encounter Details Date Type Department Care Team (Late st Contact Info) Description 04/08/2025 Telephone [facility] GYNECOLOGY [address] [place] [phone] Lucrecia Cavanaugh APRN 1780 [facility] [address] [place] [address] Social History Tobacco Use Types Packs/Day Years [...] needed for daily living? Patient declined 09/13/2020 [place] Depression Scale Answer Date Recorded [place] Depression Scale Total 1 09/13/2020 The thought [...] Telephone Encounter - Rosa Echevarria MA - 04/08/2025 8:09 AM EDT I attempted to call the pt, I left a message for her to give the office a call back. documented in this encounter Plan of Treatment Upcoming Encounters Date Type Department Care Team (Late st Contact Info) Description 08/06/2025 9:30 AM EST Office Visit [facility] OBGYN [address] [address] Ky Garcia MD [address] [address] documented as of this encounter Visit Diagnoses Not on filedocumented in this encounter Care Teams Sole Molding Machine Operator Relationship Specialty Start Date End Date Carmen Perez APRN [address] [address] PCP - General Nurse Practitioner 03/06/25 documented as of this encounter
--- OUTSIDE RECORDS SUMMARY | 2025-05-17 08:30 | XMS_ITS | Encounter Summary ---
[facility] Organization [facility] Address [address] [place] [address] Care Team Providers Care Archeologist Name Role Phone Perez, Carmen BLANC Primary Care Provider [phone] Encounter Details Date Type Department Care Team (Late st Contact Info) Description 04/07/2025 Results Follow-Up [facility] GYNECOLOGY [address] [place] [phone] Lucrecia Cavanaugh APRN 1780 [facility] [address] [place] [address] Social History Tobacco Use Types Packs/Day Years [...] needed for daily living? Patient declined 09/13/2020 [place] Depression Scale Answer Date Recorded [place] Depression Scale Total 1 09/13/2020 The thought [...] Description 08/06/2025 9:30 AM EST Office Visit [facility] OBGYN [address] [place] [address] Ky Garcia MD 1700 [facility] [address] [place] [address] Scheduled Orders Name Type Priority Associated Diagnoses Orde r Schedule Iron Profile Lab Routine Iron deficiency Expected: 2025 (Approximate), Expires: 07/07/2026 CBC (No Diff) Lab Routine Iron deficiency Expected: 2025, Expires: 08/07/2025 Ferritin Lab Routine Iron deficiency Expected: 2025 (Approximate), Expires: 07/07/2026 documented as of this encounter Visit Diagnoses Diagnosis Iron deficiency- Primary Disorders of iron metabolism documented in this encounter Care Teams Archeologist Relationship Specialty Start Date End Date Carmen Perez APRN [address] [address] PCP - General Nurse Practitioner 03/06/25 documented as of this encounter
--- OUTSIDE RECORDS SUMMARY | 2025-05-17 08:30 | XMS_ITS | Encounter Summary ---
Author Organization [facility] Address [address] [place] [address] Care Team Providers Care Building Surveyor Name Role Phone Cramen Perez RADIO PERFORMER Primary Care Provider [phone] Encounter Details Date Type Department Care Team (Latest Contact Info) Description 04/06/2025 Travel Social History Tobacco Use Types Packs/Day [...] needed for daily living? Patient declined 09/13/2020 [place] Depression Scale Answer Date Recorded [place] Depression Scale Total 1 09/13/2020 The thought [...] Description 08/06/2025 9:30 AM EST Office Visit [facility] OBGYN [address] [address] Ky Garcia MD [address] [facility] [address] [place] [phone] documented as of this encounter Visit Diagnoses Not on filedocumented in this encounter Care Teams Building Surveyor Relationship Specialty Start Date End Date Carmen Perez APRN [address] [address] PCP - General Nurse Practitioner 03/06/25 documented as of this encounter
--- OUTSIDE RECORDS SUMMARY | 2025-05-17 08:30 | XMS_ITS | Encounter Summary ---
Author Organization [facility] Address [address] [place] [address] Care Team Providers Care Screen Printing Loader Unloader Name Role Phone Carmen Perez APRN Primary Care Provider [phone] Encounter Details Date Type Department Care Team (Late st Contact Info) Description 04/07/2025 Telephone [facility] GYNECOLOGY [address] [place] [phone] Lucrecia Cavanaugh APRN 1780 [facility] [address] [place] [address] Social History Tobacco Use Types Packs/Day Years [...] needed for daily living? Patient declined 09/13/2020 [place] Depression Scale Answer Date Recorded [place] Depression Scale Total 1 09/13/2020 The thought [...] Telephone Encounter - Rosa Echevarria MA - 04/07/2025 4:14 PM EDT I spoke to Charity she informed me that she has tried two other iron medications in the past. documented in this encounter Plan of Treatment Upcoming Encounters Date Type Department Care Team (Late st Contact Info) Description 08/06/2025 9:30 AM EST Office Visit [facility] OBGYN [address] [address] Ky Garcia MD [address] [address] documented as of this encounter Visit Diagnoses Not on filedocumented in this encounter Care Teams Screen Printing Loader Unloader Relationship Specialty Start Date End Date Carmen Perez APRN [address] [address] PCP - General Nurse Practitioner 03/06/25 documented as of this encounter
--- OUTSIDE RECORDS SUMMARY | 2025-05-17 08:30 | XMS_ITS | Clinical Summary ---
Author Organization [facility] Address [address] [place] [address] Care Team Providers Care Pit Worker Power Shovel Name Role Phone Carmen Perez APRN Primary Care Provider [phone] Allergies No known active allergies Medications albuterol sulfate HFA 108 (90 Base) MCG/ACT inhaler Inhale 2 puffs Every 4 (Four) Hours As Needed for Wheezing. 1 inhaler 3 0 Active Additional Information Patient not taking.Reported on 04/28/2025 cyclobenzaprin e (FLEXERIL) 10 MG tablet Take 1 tablet by mouth At Night As Needed. 5 Active diclofenac (VOLTAREN) 75 MG EC tablet Take 1 tablet by mouth Every 12 (Twelve) Hours. 5 Active Ferric Maltol (ACCRUFeR) 30 MG capsuleIndicat ions:Iron deficiency Take 1 capsule by mouth 2 (Two) Times a Day. 60 capsule 1 5 Active Additional Information Patient not taking.Reported on 04/28/2025 Vit-Fe Fumarate-FA ( 27-1) 27-1 MG tablet tablet Take by mouth Daily. 04/28/20 25 Discontin ued(*Ther apy completed ) Active Problems Problem Noted Date Diagnosed Date Iron deficiency 04/28/2025 Menorrhagia with regular cycle 04/28/2025 H/O thyroid nodule 04/28/2025 Postoperative state 09/27/2020 39 weeks gestation of 09/13/2020 38 weeks gestation of 08/09/2020 Sterilization consult 05/04/2020 Overview (05/04/2020): Would want BTL if delivery indicated 05/04/2020 Cigarette smoker 01/27/2020 History of shoulder dystocia in prior 01/27/2020 History of conization of cervix 01/27/2020 Family history of SIDS (sudden infant synd [place]) 01/15/2018 Mass of axillary tail of right [...] Encounters Date Type Department Care Team Description 05/13/2025 Telephone [facility] GYNECOLOGY [address] [address] Nikkie Erazo APRN 04/28/2025 1:30 PM EDT Office Visit [facility] GYNECOLOGY [address] [address] Nikkie Erazo I, TRUCK ENGINE ASSEMBLER Menorrhagia with regular cycle (Primary Dx); Iron deficiency; H/O thyroid nodule 04/28/2025 Travel 04/08/2025 Telephone [facility] GYNECOLOGY 1780 [facility] [address] [place] [address] Nikkie Erazo APRN 04/07/2025 Telephone [facility] GYNECOLOGY 1780 [facility] [address] [place] [address] Nikkie Erazo APRN 04/07/2025 Results Follow-Up [facility] GYNECOLOGY 1780 [facility] [address] [place] [address] Nikkie Erazo I, TRUCK ENGINE ASSEMBLER 04/06/2025 5:25 PM EDT Lab [facility] [address] [place] [phone] H/O iron deficiency anemia 04/06/2025 2:30 PM EDT Office Visit [facility] GYNECOLOGY 1780 [facility] [address] [place] [address] Nikkie Erazo I, TRUCK ENGINE ASSEMBLER Menorrhagia with regular cycle (Primary Dx); H/O iron deficiency anemia; Cervical cancer screening; Vaginal polyp 04/06/2025 Patient rounding ([facility] only) [facility] GYNECOLOGY 1780 [facility] [address] [place] [address] Nikkie Erazo I, TRUCK ENGINE ASSEMBLER 04/06/2025 Travel 03/06/2025 Telephone [facility] OBGYN 1700 [facility] [address] [place] [address] Provider, No Known SOONER APPT, NEW PROCED TECH from Last 3 Months Family History Medical History Relation Name Comments Breast cancer Maternal Aunt Ovarian cancer Maternal Aunt Ovarian cancer Maternal Grandmother Ovarian cancer Mother Colon cancer Neg Hx Osteoporosis Neg Hx Relation Name Status Comments Father Alive Maternal [...] needed for daily living? Patient declined 09/13/2020 [place] Depression Scale Answer Date Recorded [place] Depression Scale Total 1 09/13/2020 The thought [...] Pressure 124/62 04/28/2025 1:37 PM EDT Pulse 79 09/15/2020 7:00 AM EST Temperature 36.9 C (98.4 F) 10/27/2020 10:41 AM EDT Respiratory Rate 18 09/15/2020 7:00 AM EST Oxygen Saturation 98% 09/13/2020 10:45 AM EST Inhaled Oxygen Concentration - - Weight 85.7 kg (189 lb) 04/28/2025 1:37 PM EDT Height 168.9 cm (5' 6.5 ) 04/28/2025 1:37 PM EDT Body Mass Index 30.05 04/28/2025 1:37 PM EDT Plan of Treatment Upcoming Encounters Date Type Department Care Team (Late st Contact Info) Description 08/06/2025 9:30 AM EST Office Visit [facility] OBGYN [address] [address] Ky Garcia MD [address] [address] Health Maintenance Due Date Last Done Comments Annual Gynecologic Pelvic an d Breast Exam 1988 TDAP/TD VACCINES (1 - Tdap) 2007 ANNUAL PHYSICAL 02/05/2018 02/05/2017 INFLUENZA VACCINE 02/13/2025 PAP SMEAR 04/06/2028 04/06/2025 HEPATITIS C SCREENING Completed 01/27/2020 , 01/29/2018 Pneumococcal Vaccine 0-49 Aged Out No longer eligible based on patient's age to complete this topic Medical Devices Implanted Type Area Hydraulic Repairer Device Identifier Shelf Expiration Date Model / Serial / Lot Gregorio Adhs I/O Interceed Abs 3x4in - [id number] Implanted:Qty: 1 on 09/13/2020 by Ky Garcia MD at [facility] Implant [employer] J [id number] / / Procedures Procedure Name Priority Date/Time Associated Diagnosis Comments US NON-OB TRANSVAGINAL Routine 04/28/2025 1:20 PM EDT Menorrhagia with regular cycle CBC (NO DIFF) Routine 04/06/2025 4:17 PM EDT H/O iron deficiency anemia FERRITIN Routine 04/06/2025 4:17 PM EDT H/O iron deficiency anemia IRON PROFILE Routine 04/06/2025 4:17 PM EDT H/O iron deficiency anemia LIQUID-BASED PAP SMEAR WITH HPV GENOTYPING REGARDLESS OF INTERPRETATION, [facility] (JOSE,COR,MAD) Routine 04/06/2025 3:50 PM EDT Cervical cancer screening HEPATITIS C ANTIBODY Routine 01/27/2020 12:36 PM EDT Supervision of other normal from Last 3 Months or Most Recently Relevant to Health Maintenance Results * US Non-ob Transvaginal (04/28/2025 1:20 PM EDT) Anatomical Region Laterality Modality Body Radiographic Paula ging 04/28/2025 12:5 8 PM EDT Narrative 05/01/2025 9:01 AM EDT PAT NAME: CHARITY CORLEY [facility] REC#: [id number] DA: 1990 PAT GEND: F PAT TYPE: O EXAM JAYDEN: [id number] REF PHYS NIKKIE ERAZO Indication ======== menorrhagia [...] pelvic ultrasound Recommendation Follow-up as clinically indicated. Assisted Living Director: SAJAN Barlow Physician: Ky Garcia MD Electronically signed by: Ky Garcia MD at: 09:01 Procedure Note Ky Garcia MD - 05/01/2025 PAT NAME: CHARITY CORLEY [facility] REC#: [id number] DA: 1990 PAT GEND: F PAT TYPE: O EXAM JAYDEN: [id number] REF PHYS NIKKIE ERAZO Indication ======== menorrhagia Dx: Menorrhagia with regular cycle [N92.0 (ICD-10-CM)] Comparison Studies There are no relevant prior studies to which this study is beingcompared History ====== General History Ylcogt585 cm Height (ft)5 ft Height (in)6 in Assessment LMP on 04/22/2025 Method ====== Voluson E6, Transvaginal ultrasound examination, Color Doppler flowperformed, 3D ultrasound examination. View: Adequate view Uterus ====== Uterus:Normal Uterus position:Anteverted Description of uterine malformations:none Myometrium:Homogeneous Endometrium:Uniform Cervix details:Normal Uterus long65 mm Uterus ap52 mm Uterus tr63 mm Uterus Lwz668.8 cm Endometrial thickness, total4.6 mm Cervical jnvecz68.9 mm Right Ovary ========= Rt ovary:Normal Rt ovary D136.2 mm Rt ovary D218.1 mm Rt ovary D320.3 mm Rt ovary Vol7.0 cm Left Ovary ======== Lt ovary:Normal Lt ovary D126.0 mm Lt ovary D229.3 mm Lt ovary D318.00 mm Lt ovary Vol7.2 cm Cul de Sac ========= Normal. No free fluid visualized Impression ========= Normal pelvic ultrasound Recommendation Follow-up as clinically indicated. Assisted Living Director: SAJAN Barlow Physician: Ky Garcia MD Electronically signed by: Ky Garcia MD at: 09:01 Nikkie Erazo APRN IMG US ORDERABLES Final Res ult * (ABNORMAL) Iron Profile (04/06/2025 4:17 PM [...] Erazo APRN LAB BLOOD ORDERABLES Final Result [facility]
[address] [place] [address], * (ABNORMAL) CBC (No Diff) (04/06/2025 4:17 [...] Erazo APRN LAB BLOOD ORDERABLES Final Result [facility]
[address] [place] [address], * Ferritin (04/06/2025 4:17 PM EDT) Ferritin 16.70 13.00 - 150.00 ng/mL 04/06/2025 11:28 PM EDT [facility] Blood Venipuncture / Unknown 04/06/2025 4:17 PM EDT 04/06/2025 4:17 PM EDT Narrative [facility] - 04/06/2025 11:28 PM EDT Results may be falsely decreased if patient taking Biotin. us Nikkie Franco Erazo APRN LAB BLOOD ORDERABLES Final Result [facility]
[address] [place] [address], * LIQUID-BASED PAP SMEAR WITH HPV GENOTYPING REGARDLESS OF INTERPRETATION (JOSE,COR,MAD) (04/06/2025 3:50 PM EDT) Pathologist [facility] Reference Lab Report FINAL PROCED TECH CYTOLOGY REPORT ---- DIAGNOSIS: Negative for intraepithelial [...] results can occur. ThinPrep Pap imagined by [employer] (AI assisted system). Screened by SEJAL AGOSTO [...] 3:50 PM EDT 04/06/2025 3:50 PM EDT Nikkie Erazo APRN PATHOLOGY/CYTOLOGY ORDERABL ES Final Result [facility]
[address] [place] [address], [place] [phone] * Hepatitis C Antibody (01/27/2020 12:36 PM EDT) Hepatitis C Ab Non-Reacti ve Non-Reacti ve 01/27/2020 7:09 PM EDT [facility] Blood Venipuncture / Unknown 01/27/2020 12:36 PM EDT 01/27/2020 12:36 PM EDT Narrative [facility] - 01/27/2020 7:09 PM EDT Results may be falsely decreased if patient taking Biotin. Ky Garica MD LAB BLOOD ORDERABLES Final Result Performing Organization Address City/[facility]/ZIP Co de Phone Number [facility]
[address] [place] [address], [place] [phone] from Last 3 Months or Most Recently Relevant to Health Maintenance Insurance Advance Directives * CPR (Attempt to Resuscitate) [...] pulse or is breathing): Full Care Teams Pit Worker Power Shovel Relationship Specialty Start Date End Date Carmen Perez APRN [address] [place] [id number] PCP - General Nurse Practitioner 03/06/25
--- NOTE | 2025-05-17 08:59 | XR_ITS ---
PROCEDURE INFORMATION: Exam: XR Right Shoulder Exam date and time: 05/17/2025 8:52 AM Age: 34 years old Clinical indication: Pain; Shoulder; Right; Additional info: Right shoulder pain TECHNIQUE: Imaging protocol: Radiologic exam of the right shoulder. Views: 2 or more views. COMPARISON: MR SHOULDER RT WO CON 02/25/2025 4:53 PM FINDINGS: Bones/joints: Normal. Lungs: Unremarkable. Soft tissues: Normal. IMPRESSION: No acute findings.
== END 2025-05-17 23:59 | disposition home or self-care (01) ==
LOC: RAD 08:28
PROVIDERS: PCP Nurse Practitioner Family; Visit Provider Orthopaedic Surgery
DX: M25.511 Pain in right shoulder (principal)
CPT/HCPCS: 73030

== ENCOUNTER 2025-05-27 09:44 | Emergency (ER) | payer OTHER, SELFPAY ==
--- OUTSIDE RECORDS SUMMARY | 2025-04-06 13:30 | XMS_ITS | Encounter Summary ---
[facility] Organization [facility] Address [address] [place] [phone] Care Team Providers Care Pin Game Machine Inspector Name Role Phone Carmen Wilkes APRN Primary Care Provider + Reason for Referral * Diagnostic Imaging (Routine) - Closed Specialty Diagnoses / Procedures Referred By Coco t Referred To Contact Radiology Diagnoses Menorrhagia with regular cycle Procedures US Non-ob Transvaginal Nikkie Erazo APRN [address] [facility] [address] [place] [address] Phone: tel: fax: [facility] [address] [facility] [address] [place] [address] Phone: tel: fax: Referral ID Status Reason Start Date Expiration Date Visits Re quested Visits Authorized [id number] Closed 04/06/2025 07/06/2026 1 1 Reason for Visit * Reason Comments Gynecologic Exam Pt reports that when she has periods they are very heavy. Encounter Details Date Type Department Care Team (Late st Contact Info) Description 04/06/2025 2:30 PM EDT Office Visit [facility] [address] [facility] [address] [place] [address] Nikkie Erazo APRN [address] [facility] [address] [place] [address] Menorrhagia with regular cycle (Primary Dx); H/O [...] needed for daily living? Patient declined 09/13/2020 [place] Depression Scale Answer Date Recorded [place] Depression Scale Total 1 09/13/2020 The thought [...] encounter Progress Notes * Nikkie Erazo I, NUT BLANKER OPERATOR - 04/06/2025 2:30 PM EDT Subjective Chief [...] nursing note reviewed. Exam conducted with a ham rolling machine operator present. Constitutional: Appearance: Normal appearance. She is [...] Description 08/06/2025 9:30 AM EST Office Visit [facility] [address] [phone] Ky Garcia MD [address] [address] documented as of this encounter Procedures Procedure [...] 9:01 AM EDT PAT NAME: CHARITY CORLEY [facility] REC#: [id number] DA: 1990 PAT GEND: F PAT TYPE: O EXAM JAYDEN: [id number] REF PHYS NIKKIE ERAZO Indication ======== menorrhagia [...] pelvic ultrasound Recommendation Follow-up as clinically indicated. Police District Switchboard Operator: SAJAN Barlow Physician: Ky Garcia MD Electronically signed by: Ky Garcia MD at: 09:01 Procedure Note Ky Garcia MD - 05/01/2025 PAT NAME: CHARITY CORLEY [facility] REC#: [id number] DA: 1990 PAT GEND: F PAT TYPE: O EXAM JAYDEN: [id number] REF PHYS KACEY NIKKIE Indication ======== menorrhagia Dx: Menorrhagia with regular cycle [N92.0 (ICD-10-CM)] Comparison Studies There are no relevant prior studies to which this study is beingcompared History ====== General History Wfxugt554 cm Height (ft)5 ft Height (in)6 in Assessment LMP on 04/22/2025 Method ====== Voluson E6, Transvaginal ultrasound examination, Color Doppler flowperformed, 3D ultrasound examination. View: Adequate view Uterus ====== Uterus:Normal Uterus position:Anteverted Description of uterine malformations:none Myometrium:Homogeneous Endometrium:Uniform Cervix details:Normal Uterus long65 mm Uterus ap52 mm Uterus tr63 mm Uterus Djg990.8 cm Endometrial thickness, total4.6 mm Cervical .9 mm Right Ovary ========= Rt ovary:Normal Rt ovary D136.2 mm Rt ovary D218.1 mm Rt ovary D320.3 mm Rt ovary Vol7.0 cm Left Ovary ======== Lt ovary:Normal Lt ovary D126.0 mm Lt ovary D229.3 mm Lt ovary D318.00 mm Lt ovary Vol7.2 cm Cul de Sac ========= Normal. No free fluid visualized Impression ========= Normal pelvic ultrasound Recommendation Follow-up as clinically indicated. Police District Switchboard Operator: SAJAN Barlow Physician: Ky Garcia MD Electronically signed by: Ky Garcia MD at: 09:01 us Nikkie Erazo NUT BLANKER OPERATOR IMG US ORDERABLES Final Res ult * (ABNORMAL) CBC (No Diff) (04/06/2025 4:17 PM EDT) WBC 6.88 3.40 - 10.80 10*3/mm3 04/06/2025 11:23 PM EDT [facility] RBC 4.81 3.77 - 5.28 10*6/mm3 04/06/2025 11:23 PM EDT [facility] Hemoglobin 12.3 12.0 - 15.9 g/dL 04/06/2025 11:23 PM EDT [facility] Hematocrit 38.8 34.0 - 46.6 % 04/06/2025 11:23 PM EDT [facility] MCV 80.7 79.0 - 97.0 fL 04/06/2025 11:23 PM EDT [facility] MCH 25.6(L) 26.6 - 33.0 pg 04/06/2025 11:23 PM EDT [facility] MCHC 31.7 31.5 - 35.7 g/dL 04/06/2025 11:23 PM EDT [facility] RDW 13.6 12.3 - 15.4 % 04/06/2025 11:23 PM EDT [facility] RDW-SD 39.6 37.0 - 54.0 fl 04/06/2025 11:23 PM EDT [facility] MPV 12.3(H) 6.0 - 12.0 fL 04/06/2025 11:23 PM EDT [facility] Platelets 302 140 - 450 10*3/mm3 04/06/2025 11:23 PM EDT [facility] Blood Venipuncture / Unknown 04/06/2025 4:17 PM EDT 04/06/2025 4:17 PM EDT us Nikkie Erazo APRN LAB BLOOD ORDERABLES Final Result [facility]
[address] [place] [address], [place] [phone] * Ferritin (04/06/2025 4:17 PM EDT) Ferritin 16.70 13.00 - 150.00 ng/mL 04/06/2025 11:28 PM EDT [facility] Blood Venipuncture / Unknown 04/06/2025 4:17 PM EDT 04/06/2025 4:17 PM EDT Narrative [facility] - 04/06/2025 11:28 PM EDT Results may be falsely decreased if patient taking Biotin. Nikkie Erazo APRN LAB BLOOD ORDERABLES Final Result Performing Organization Address City/[facility]/ZIP Co de Phone Number [facility]
[address] [place] [address], * (ABNORMAL) Iron Profile (04/06/2025 4:17 PM EDT) Iron 25(L) 37 - 145 mcg/dL 04/06/2025 11:24 PM EDT [facility] Iron Saturation (TSAT) 4(L) 20 - 50 % 04/06/2025 11:24 PM EDT [facility] Transferrin 373(H) 200 - 360 mg/dL 04/06/2025 11:24 PM EDT [facility] TIBC 556(H) 298 - 536 mcg/dL 04/06/2025 11:24 PM EDT [facility] Blood Venipuncture / Unknown 04/06/2025 4:17 PM EDT 04/06/2025 4:17 PM EDT Nikkie Erazo APRN LAB BLOOD ORDERABLES Final Result Performing Organization Address City/[facility]/ZIP Co de Phone Number [facility]
[address] [place] [address], * LIQUID-BASED PAP SMEAR WITH HPV GENOTYPING REGARDLESS OF INTERPRETATION (JOSE,COR,MAD) (04/06/2025 3:50 PM EDT) Reference Lab Report FINAL EXPORT DOCUMENTS CLERK CYTOLOGY REPORT ---- DIAGNOSIS: Negative for intraepithelial [...] results can occur. ThinPrep Pap imagined by Flexion (AI assisted system). Screened by SEJAL AGOSTO [...] Result [facility]
[address] [place] [address], documented in this encounter Visit Diagnoses Diagnosis Menorrhagia with regular cycle- Primary H/O iron deficiency anemia Cervical cancer screening Screening for malignant neoplasm of the cervix Vaginal polyp Polyp of vagina documented in this encounter Care Teams Pin Game Machine Inspector Relationship Specialty Start Date End Date Carmen Wilkes APRN PCP - General Nurse Practitioner 03/06/25 documented as of this encounter
--- OUTSIDE RECORDS SUMMARY | 2025-04-06 16:25 | XMS_ITS | Encounter Summary ---
[facility] Address [address] [place] [address] Care Team Providers Care Floater Operator Name Role Phone Carmen Wilkes APRN Primary Care Provider + Encounter Details Date Type Department Care Team (Late st Contact Info) Description 04/06/2025 5:25 PM EDT Lab [facility] [address] [place] [phone] H/O iron deficiency anemia Social History Tobacco Use Types Packs/Day Years Used Date Smoking Tobacco: Former Cigarettes Q uit: 02/14/2020 Passive Smoke Exposure: Past Smokeless Tobacco: Never Alcohol Use Standard Drinks/Week [...] needed for daily living? Patient declined 09/13/2020 [place] Depression Scale Answer Date Recorded [place] Depression Scale Total 1 09/13/2020 The thought [...] on file documented as of this encounter Plan of Treatment Upcoming Encounters Date Type Department Care Team (Late st Contact Info) Description 08/06/2025 9:30 AM EST Office Visit [facility] [address] [facility] [address] [place] [address] Ky Garcia MD [address] [facility] [address] [place] [phone] (work) documented as of this encounter Procedures Procedure Name Priority Date/Time Associated Diagnosis Comments IRON PROFILE Routine 04/06/2025 4:17 PM EDT H/O iron deficiency anemia CBC (NO DIFF) Routine 04/06/2025 4:17 PM EDT H/O iron deficiency anemia FERRITIN Routine 04/06/2025 4:17 PM EDT H/O iron deficiency anemia documented in this encounter Results * (ABNORMAL) CBC (No Diff) (04/06/2025 4:17 PM EDT) WBC 6.88 3.40 - 10.80 10*3/mm3 04/06/2025 11:23 PM EDT [facility] RBC 4.81 3.77 - 5.28 10*6/mm3 04/06/2025 11:23 PM EDT [facility] Hemoglobin 12.3 12.0 - 15.9 g/dL 04/06/2025 11:23 PM EDT [facility] Hematocrit 38.8 34.0 - 46.6 % 04/06/2025 11:23 PM EDT [facility] MCV 80.7 79.0 - 97.0 fL 04/06/2025 11:23 PM EDT [facility] MCH 25.6(L) 26.6 - 33.0 pg 04/06/2025 11:23 PM EDT [facility] MCHC 31.7 31.5 - 35.7 g/dL 04/06/2025 11:23 PM EDT [facility] RDW 13.6 12.3 - 15.4 % 04/06/2025 11:23 PM EDT [facility] RDW-SD 39.6 37.0 - 54.0 fl 04/06/2025 11:23 PM EDT [facility] MPV 12.3(H) 6.0 - 12.0 fL 04/06/2025 11:23 PM EDT [facility] Platelets 302 140 - 450 10*3/mm3 04/06/2025 11:23 PM EDT [facility] Blood Venipuncture / Unknown 04/06/2025 4:17 PM EDT 04/06/2025 4:17 PM EDT Lucrecia Cavanaugh APRN LAB BLOOD ORDERABLES Final Result Performing Organization Address City/[facility]/ZIP Co de Phone Number [facility]
[address] [place] [address], * Ferritin (04/06/2025 4:17 PM EDT) Ferritin 16.70 13.00 - 150.00 ng/mL 04/06/2025 11:28 PM EDT [facility] Blood Venipuncture / Unknown 04/06/2025 4:17 PM EDT 04/06/2025 4:17 PM EDT Narrative [facility] - 04/06/2025 11:28 PM EDT Results may be falsely decreased if patient taking Biotin. Lucrecia Cavanaugh APRN LAB BLOOD ORDERABLES Final Result Performing Organization Address [facility] Co de Phone Number [facility]
[address] [place] [address], * (ABNORMAL) Iron Profile (04/06/2025 4:17 PM EDT) Iron 25(L) 37 - 145 mcg/dL 04/06/2025 11:24 PM EDT [facility] Iron Saturation (TSAT) 4(L) 20 - 50 % 04/06/2025 11:24 PM EDT [facility] Transferrin 373(H) 200 - 360 mg/dL 04/06/2025 11:24 PM EDT [facility] TIBC 556(H) 298 - 536 mcg/dL 04/06/2025 11:24 PM EDT [facility] Blood Venipuncture / Unknown 04/06/2025 4:17 PM EDT 04/06/2025 4:17 PM EDT Lucrecia Cavanaugh APRN LAB BLOOD ORDERABLES Final Result [facility]
[address] [place] [address], documented in this encounter Visit Diagnoses Diagnosis H/O iron deficiency anemia documented in this encounter Care Teams Floater Operator Relationship Specialty Start Date End Date Carmen Wilkes APRN PCP - General Nurse Practitioner 03/06/25 documented as of this encounter
--- OUTSIDE RECORDS SUMMARY | 2025-04-28 12:30 | XMS_ITS | Encounter Summary ---
Author Organization [facility] Address [address] [place] [phone] Care Team Providers Care Vending Machine Technician Name Role Phone Carmen Wilkes APRN Primary Care Provider + Reason for Visit * Reason Comments Follow-up US done today. No ne w c/c. Encounter Details Date Type Department Care Team (Late st Contact Info) Description 04/28/2025 1:30 PM EDT Office Visit [facility] [address] [facility] [address] [place] [phone] Lucrecia Cavanaugh APRN [address] [facility] [address] [place] [address] Menorrhagia with regular cycle (Primary Dx); Iron [...] the money to buy more. Patient declined 03 /07/2020 Within the past 12 months, t he [...] needed for daily living? Patient declined 09/13/2020 [place] Depression Scale Answer Date Recorded [place] Depression Scale Total 1 09/13/2020 The thought [...] encounter Progress Notes * Lucrecia Cavanaugh I, ANTHROPOLOGY LECTURER - 04/28/2025 1:30 PM EDT Subjective Chief [...] 08/06/2025 9:30 AM EST Office Visit [facility] [address] [facility] [address] [place] [address] Ky Garcia MD [address] [facility] [address] [place] [address] Scheduled Orders Name Type Priority Associated Diagnoses [...] nodule documented in this encounter Care Teams Vending Machine Technician Relationship Specialty Start Date End Date Carmen Wilkes APRN PCP - General Nurse Practitioner 03/06/25 documented as of this encounter
[2025-05-27 09:59] VITALS: BP 138/79; PULSE 84; RESP 18; TEMP 36.6; O2SAT 98; BMI 30.3
--- OUTSIDE RECORDS SUMMARY | 2025-05-27 10:02 | XMS_ITS | Encounter Summary ---
[facility] Address [address] [place] [address] Care Team Providers Care Assistant To The Ceo Name Role Phone Carmen Wilkes APRN Primary Care Provider + Encounter Details Date Type Department Care Team (Late st Contact Info) Description 04/07/2025 Results Follow-Up [facility] GYNECOLOGY [address] [facility] [address] [place] [address] Lucrecia Cavanaugh APRN [address] [facility] [address] [place] [address] Social History Tobacco Use Types Packs/Day Years [...] needed for daily living? Patient declined 09/13/2020 [place] Depression Scale Answer Date Recorded Vincent Depression Scale Total 1 09/13/2020 The thought [...] Description 08/06/2025 9:30 AM EST Office Visit [facility] OBGYN [address] [facility] [address] [place] [address] Ky Garcia MD [address] [facility] [address] [place] [address] Scheduled Orders Name Type Priority Associated Diagnoses Orde r Schedule Iron Profile Lab Routine Iron deficiency Expected: 2025 (Approximate), Expires: 07/07/2026 CBC (No Diff) Lab Routine Iron deficiency Expected: 2025, Expires: 08/07/2025 Ferritin Lab Routine Iron deficiency Expected: 2025 (Approximate), Expires: 07/07/2026 documented as of this encounter Visit Diagnoses Diagnosis Iron deficiency- Primary Disorders of iron metabolism documented in this encounter Care Teams Assistant To The Ceo Relationship Specialty Start Date End Date Carmen Wilkes APRN PCP - General Nurse Practitioner 03/06/25 documented as of this encounter
--- OUTSIDE RECORDS SUMMARY | 2025-05-27 10:02 | XMS_ITS | Encounter Summary ---
[facility] Address [address] [place] [address] Care Team Providers Care Minor League Baseball Player Name Role Phone Carmen Wilkes APRN Primary Care Provider + Encounter Details Date Type Department Care Team (Late st Contact Info) Description 05/13/2025 Telephone [facility] GYNECOLOGY [address] [address] Lucrecia Cavanaugh APRN [address] [facility] [address] [place] [address] Social History Tobacco Use Types Packs/Day Years [...] needed for daily living? Patient declined 09/13/2020 [place] Depression Scale Answer Date Recorded [place] Depression Scale Total 1 09/13/2020 The thought [...] Office Visit [facility] OBGYN [address] [address] Ky Garcia MD [address] [address] documented as of this encounter Visit Diagnoses Not on filedocumented in this encounter Care Teams Minor League Baseball Player Relationship Specialty Start Date End Date Carmen Wilkes APRN PCP - General Nurse Practitioner 03/06/25 documented as of this encounter
--- OUTSIDE RECORDS SUMMARY | 2025-05-27 10:02 | XMS_ITS | Clinical Summary ---
Author Organization [facility] Address [address] [place] [address] Care Team Providers Care Staff Assistant Name Role Phone Carmen Wilkes APRN Primary Care Provider + Allergies No known active allergies Medications albuterol [...] 01/27/2020 Family history of SIDS (sudden synd [place]) 01/15/2018 Mass of axillary tail of right [...] Type Department Care Team Description 05/13/2025 Telephone [facility] GYNECOLOGY [address] [address] Nikkie Erazo APRN 04/28/2025 1:30 PM EDT Office Visit [facility] GYNECOLOGY [address] [address] Nikkie Erazo I, CLINICAL SYSTEMS EDUCATOR Menorrhagia with regular cycle (Primary Dx); Iron deficiency; H/O thyroid nodule 04/28/2025 Travel 04/08/2025 Telephone [facility]ECOLOG[facility] [address] [facility] [address] [place] [address] Nikkie Erazo APRN 04/07/2025 Telephone [facility] GYNECOLOG[facility] [address] [address] Nikkie Erazo APRN 04/07/2025 Results Follow-Up [facility] [address] [facility] [address] [place] [address] Nikkie Erazo I, JAYASHREE 04/06/2025 5:25 PM EDT Lab [facility] [address] [place] [address] H/O iron deficiency anemia 04/06/2025 2:30 PM EDT Office Visit [facility]ECOLOGY [address] [facility] [address] [place] [address] Nikkie Erazo I, CLINICAL SYSTEMS EDUCATOR Menorrhagia with regular cycle (Primary Dx); H/O iron deficiency anemia; Cervical cancer screening; Vaginal polyp 04/06/2025 Patient rounding ([facility] only) [facility] [address] [facility] [address] [place] [address] Nikkie Erazo APRN 04/06/2025 Travel 03/06/2025 Telephone [facility] OBGYN [address] [facility] [address] [place] [address] Provider, No Known SOONER APPT, NEW PRODUCT INSPECTION SUPERVISOR from Last 3 Months Family History Medical [...] needed for daily living? Patient declined 09/13/2020 [place] Depression Scale Answer Date Recorded [place] Depression Scale Total 1 09/13/2020 The thought [...] Description 08/06/2025 9:30 AM EST Office Visit [facility] OBGYN [address] [address] Ky Garcia MD [address] [address] Health Maintenance Due Date Last Done Comments Annual Gynecologic Pelvic an d Breast Exam 1990 TDAP/TD VACCINES (1 - Tdap) 2007 ANNUAL PHYSICAL 02/05/2018 02/05/2017 INFLUENZA VACCINE 02/13/2025 PAP SMEAR 04/06/2028 04/06/2025 HEPATITIS C SCREENING Completed 01/27/2020 , 01/29/2018 Pneumococcal Vaccine 0-49 Aged Out No longer eligible based on patient's age to complete this topic Medical Devices Implanted Type Area Enterprise Applications Manager Device Identifier Shelf Expiration Date Model / Serial / Lot Gregorio Adhs I/O Interceed Abs 3x4in - [id number] Implanted:Qty: 1 on 09/13/2020 by Ky Garcia MD at [facility] Implant [employer] J AND [...] EDT PAT NAME: CHARITY CORLEY MED REC#: [id number] DA: 1990 PAT GEND: F PAT TYPE: O EXAM JAYDEN: [id number] REF PHYS NIKKIE ERAZO Indication ======== menorrhagia [...] pelvic ultrasound Recommendation Follow-up as clinically indicated. Fork Operator: SAJAN Barlow Physician: Ky Garcia MD Electronically signed by: Ky Garcia MD at: 09:01 Procedure Note Ky Garcia MD - 05/01/2025 PAT NAME: CHARITY CORLEY MED REC#: [id number] DA: 1990 PAT GEND: F PAT TYPE: O EXAM JAYDEN: [id number] REF PHYS NIKKIE ERAZO Indication ======== menorrhagia Dx: Menorrhagia with regular cycle [N92.0 (ICD-10-CM)] Comparison Studies There are no relevant prior studies to which this study is beingcompared History ====== General History Hasgti771 cm Height (ft)5 ft Height (in)6 in Assessment LMP on 04/22/2025 Method ====== [place]on E6, Transvaginal ultrasound examination, Color Doppler flowperformed, 3D ultrasound examination. View: Adequate view Uterus ====== Uterus:Normal Uterus position:Anteverted Description of uterine malformations:none Myometrium:Homogeneous Endometrium:Uniform Cervix details:Normal Uterus long65 mm Uterus ap52 mm Uterus tr63 mm Uterus Lyt170.8 cm Endometrial thickness, total4.6 mm Cervical efgosb80.9 mm Right Ovary ========= Rt ovary:Normal Rt ovary D136.2 mm Rt ovary D218.1 mm Rt ovary D320.3 mm Rt ovary Vol7.0 cm Left Ovary ======== Lt ovary:Normal Lt ovary D126.0 mm Lt ovary D229.3 mm Lt ovary D318.00 mm Lt ovary Vol7.2 cm Cul de Sac ========= Normal. No free fluid visualized Impression ========= Normal pelvic ultrasound Recommendation Follow-up as clinically indicated. Fork Operator: SAJAN Barlow Physician: Ky Garcia MD Electronically signed by: Ky Garcia MD at: 09:01 Nikkie Erazo APRN IMG US ORDERABLES Final Res ult * (ABNORMAL) Iron Profile (04/06/2025 4:17 PM EDT) Iron 25(L) 37 - 145 mcg/dL 04/06/2025 11:24 PM EDT [facility] Iron Saturation (TSAT) 4(L) 20 - 50 % 04/06/2025 11:24 PM EDT [facility] Transferrin 373(H) 200 - 360 mg/dL 04/06/2025 11:24 PM EDT [facility] TIBC 556(H) 298 - 536 mcg/dL 04/06/2025 11:24 PM EDT [facility] Blood Venipuncture / Unknown 04/06/2025 4:17 PM EDT 04/06/2025 4:17 PM EDT Nikkie Erazo APRN LAB BLOOD ORDERABLES Final Result [facility]
[address] [place] [address], * (ABNORMAL) CBC (No Diff) (04/06/2025 4:17 PM EDT) WBC 6.88 3.40 - 10.80 10*3/mm3 04/06/2025 11:23 PM EDT [facility] RBC 4.81 3.77 - 5.28 10*6/mm3 04/06/2025 11:23 PM EDT [facility] Hemoglobin 12.3 12.0 - 15.9 g/dL 04/06/2025 11:23 PM EDT [facility] Hematocrit 38.8 34.0 - 46.6 % 04/06/2025 11:23 PM EDT [facility] MCV 80.7 79.0 - 97.0 fL 04/06/2025 11:23 PM EDT [facility] MCH 25.6(L) 26.6 - 33.0 pg 04/06/2025 11:23 PM EDT [facility] MCHC 31.7 31.5 - 35.7 g/dL 04/06/2025 11:23 PM EDT [facility] RDW 13.6 12.3 - 15.4 % 04/06/2025 11:23 PM EDT [facility] RDW-SD 39.6 37.0 - 54.0 fl 04/06/2025 11:23 PM EDT [facility] MPV 12.3(H) 6.0 - 12.0 fL 04/06/2025 11:23 PM EDT [facility] Platelets 302 140 - 450 10*3/mm3 04/06/2025 11:23 PM EDT [facility] Blood Venipuncture / Unknown 04/06/2025 4:17 PM EDT 04/06/2025 4:17 PM EDT us Nikkie Erazo APRN LAB BLOOD ORDERABLES Final Result [facility]
[address] [place] [address], * Ferritin (04/06/2025 4:17 PM EDT) Ferritin 16.70 13.00 - 150.00 ng/mL 04/06/2025 11:28 PM EDT [facility] Blood Venipuncture / Unknown 04/06/2025 4:17 PM EDT 04/06/2025 4:17 PM EDT Narrative [facility] - 04/06/2025 11:28 PM EDT Results may be falsely decreased if patient taking Biotin. us Nikkie Erazo APRN LAB BLOOD ORDERABLES Final Result [facility]
[address] [place] [address], * LIQUID-BASED PAP SMEAR WITH HPV GENOTYPING REGARDLESS OF INTERPRETATION (JOSE,COR,MAD) (04/06/2025 3:50 PM EDT) Pathologist [facility] Reference Lab Report FINAL PRODUCT INSPECTION SUPERVISOR CYTOLOGY REPORT ---- DIAGNOSIS: Negative for intraepithelial [...] results can occur. ThinPrep Pap imagined by Docitt (AI assisted system). Screened by SEJAL AGOSTO [...] Result [facility]
[address] [place] [address], [place] [phone] * Hepatitis C Antibody (01/27/2020 12:36 PM EDT) Hepatitis C Ab Non-Reacti ve Non-Reacti ve 01/27/2020 7:09 PM EDT [facility] Blood Venipuncture / Unknown 01/27/2020 12:36 PM EDT 01/27/2020 12:36 PM EDT Narrative [facility] - 01/27/2020 7:09 PM EDT Results may be falsely decreased if patient taking Biotin. Ky Garcia MD LAB BLOOD ORDERABLES Final Result [facility]
[address] [place] [address], [place] [phone] from Last 3 Months or Most Recently [...] pulse or is breathing): Full Care Teams Staff Assistant Relationship Specialty Start Date End Date Carmen Wilkes APRN PCP - General Nurse Practitioner 03/06/25
--- OUTSIDE RECORDS SUMMARY | 2025-05-27 10:02 | XMS_ITS | Encounter Summary ---
Author Organization [facility] Address [address] [place] [address] Care Team Providers Care Elementary Educator Name Role Phone Carmen Wilkes APRN Primary [...] needed for daily living? Patient declined 09/13/2020 [place] Depression Scale Answer Date Recorded [place] Depression Scale Total 1 09/13/2020 The thought [...] Description 08/06/2025 9:30 AM EST Office Visit [facility] O[facility]YN [address] [address] Ky Garcia MD [address] [facility] [address] [place] [address] documented as of this encounter Visit Diagnoses Not on filedocumented in this encounter Care Teams Elementary Educator Relationship Specialty Start Date End Date Carmen Wilkes, JAYASHREE PCP - General Nurse Practitioner 03/06/25 documented as of this encounter
--- OUTSIDE RECORDS SUMMARY | 2025-05-27 10:02 | XMS_ITS | Encounter Summary ---
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 Patient declined 09/13/2020 [place] Depression Scale Answer Date Recorded [place] Depression Scale Total 1 09/13/2020 The thought [...] to patient: Self Best call back number: [phone] Chief complaint: HEAVY PERIODS WITH MORE CLOTTING. [...] WEEK AFTER PERIOD. 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 If rescheduling, when is the original appointment: [facility] SPOKE WITH OFFICE AND PATIENT WAS SCHEDULED FOR 04/06. Additional notes: [facility] WAS ASKED TO SEND TELEPHONE ENCOUNTER REQUESTING SOONER APPT. TODAY PATIENT HAS CHANGED THREE MENSTRUAL DIAPERS THIS MORNING. documented in this encounter Plan of Treatment Upcoming Encounters Date Type Department Care Team (Late st Contact Info) Description 08/06/2025 9:30 AM EST Office Visit [facility] OBGYN [address] [place] [address] Ky Garcia MD [address] [place], [place] [id number] documented as of this encounter Visit Diagnoses Not on filedocumented in this encounter Care Teams Lawyer Criminal Relationship Specialty Start Date End Date Carmen Wilkes APRN PCP - General Nurse Practitioner 03/06/25 documented as of this encounter
--- OUTSIDE RECORDS SUMMARY | 2025-05-27 10:02 | XMS_ITS | Encounter Summary ---
Author Organization [facility] Address [address] [place] [address] Care Team Providers Care Talkback Host Name Role Phone Carmen Wilkes APRN Primary [...] needed for daily living? Patient declined 09/13/2020 [place] Depression Scale Answer Date Recorded [place] Depression Scale Total 1 09/13/2020 The thought [...] 9:30 AM EST Office Visit [facility] [address] [address] Ky Garcia MD [address] [facility] [address] [place] [address] documented as of this encounter Visit Diagnoses Not on filedocumented in this encounter Care Teams Talkback Host Relationship Specialty Start Date End Date Carmen Wilkes, JAYASHREE PCP - General Nurse Practitioner 03/06/25 documented as of this encounter
--- OUTSIDE RECORDS SUMMARY | 2025-05-27 10:02 | XMS_ITS | Encounter Summary ---
[facility] Address [address] [place] [id number] Care Team Providers Care Pershing Missile Crewmember Name Role Phone Carmen Wilkes APRN Primary Care Provider + Encounter Details Date Type Department Care Team (Late st Contact Info) Description 04/06/2025 Patient rounding ([facility] [address] [facility] [address] [place] [phone] Lucrecia Cavanaugh APRN [address] [facility] [address] [place] [address] Social History Tobacco Use Types Packs/Day Years [...] needed for daily living? Patient declined 09/13/2020 [place] Depression Scale Answer Date Recorded [place] Depression Scale Total 1 09/13/2020 The thought [...] Rep - 04/06/2025 3:49 PM EDT A Between message has been sent to the patient for PATIENT ROUNDING with [facility] documented in this encounter Plan of Treatment Upcoming Encounters Date Type Department Care Team (Late st Contact Info) Description 08/06/2025 9:30 AM EST Office Visit [facility] O[facility] [address] [address] Ky Garcia MD [address] [address] documented as of this encounter Visit Diagnoses Not on filedocumented in this encounter Care Teams Pershing Missile Crewmember Relationship Specialty Start Date End Date Carmen Wilkes APRN PCP - General Nurse Practitioner 03/06/25 documented as of this encounter
--- OUTSIDE RECORDS SUMMARY | 2025-05-27 10:02 | XMS_ITS | Encounter Summary ---
[facility] Organization [facility] Address [address] [place] [address] Care Team Providers Care Data Management Specialist Name Role Phone Carmen Wilkes APRN Primary Care Provider + Encounter Details Date Type Department Care Team (Late st Contact Info) Description 04/08/2025 Telephone [facility]OLOG[facility] [address] [address] Lucrecia Cavanaugh APRN [address] [facility] [address] [place] [address] Social History Tobacco Use Types Packs/Day Years [...] needed for daily living? Patient declined 09/13/2020 [place] Depression Scale Answer Date Recorded [place] Depression Scale Total 1 09/13/2020 The thought [...] Description 08/06/2025 9:30 AM EST Office Visit [facility] OBGYN [address] [address] Ky Garcia MD [address] [address] documented as of this encounter Visit Diagnoses Not on filedocumented in this encounter Care Teams Data Management Specialist Relationship Specialty Start Date End Date Carmen Wilkes APRN PCP - General Nurse Practitioner 03/06/25 documented as of this encounter
--- OUTSIDE RECORDS SUMMARY | 2025-05-27 10:02 | XMS_ITS | Encounter Summary ---
Author [facility] Address [address] [place] [address] Care Team Providers Care Airplane Pilot Helper Name Role Phone Carmen Wilkes APRN Primary Care Provider + Encounter Details Date Type Department Care Team (Late st Contact Info) Description 04/07/2025 Telephone [facility] GYNECOLOGY [address] [address] Lucrecia Cavanaugh APRN [address] [facility] [address] [place] [address] Social History Tobacco Use Types Packs/Day Years [...] needed for daily living? Patient declined 09/13/2020 [place] Depression Scale Answer Date Recorded [place] Depression Scale Total 1 09/13/2020 The thought [...] Description 08/06/2025 9:30 AM EST Office Visit [facility] OBGYN [address] [address] Ky Garcia MD [address] [address] documented as of this encounter Visit Diagnoses Not on filedocumented in this encounter Care Teams Airplane Pilot Helper Relationship Specialty Start Date End Date Carmen Wilkes APRN PCP - General Nurse Practitioner 03/06/25 documented as of this encounter
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
[2025-05-27] MEDS: KETOROLAC 15MG/ML VIAL 15 MG IM (11:19)
[2025-05-27 11:53] VITALS: BP 122/78; PULSE 71; RESP 18; TEMP 36.8; O2SAT 98
== END 2025-05-27 11:53 | disposition home or self-care (01) ==
PROVIDERS: Emergency Provider Emergency Medicine; PCP Nurse Practitioner Family
DX: S46.811A Strain of other muscles, fascia and tendons at shoulder and upper arm level, right arm, initial encounter (principal); J45.909 Unspecified asthma, uncomplicated
CPT/HCPCS: 96372; 99283; J1885

== ENCOUNTER 2025-06-02 09:49 | Outpatient (CLI) | payer OTHER, SELFPAY ==
--- NOTE | 2025-06-02 09:51 | XR_ITS ---
FINAL REPORT CLINICAL HISTORY: right clavicle pain COMPARISON: None FINDINGS: 2 views of the right clavicle were obtained. There is no acute fracture. The joint spaces are intact. There is no soft tissue abnormality. IMPRESSION: No acute process. Reviewed, Interpreted and Dictated by Del White MD Transcribed by Tanja Zamora Authenticated and [facility]
== END 2025-06-02 23:59 | disposition home or self-care (01) ==
LOC: RAD 09:50
PROVIDERS: PCP Nurse Practitioner Family; Visit Provider Physician Assistant
DX: M89.8X1 Other specified disorders of bone, shoulder (principal)
CPT/HCPCS: 73000